=== PATIENT | male | born 1935 | race Caucasian/White ===

== ENCOUNTER 2017-11-21 18:55 | Emergency (ER) | payer MEDICARE, OTHER ==
[2017-11-21 19:09] VITALS: BP 126/86
--- NOTE | 2017-11-21 19:50 | EDM.PDOC ---
ED HPI GENERAL MEDICAL PROBLEM - General Chief Complaint: General Stated Complaint: FELL Time Seen by Provider: 11/21/17 19:30 Source of Information: Reports: Patient, EMS, Family History Limitations: Reports: No Limitations - History of Present Illness INITIAL COMMENTS - FREE TEXT/NARRATIVE: 82-year-old male was with his shopping in town and felt fine. When they got home he was getting out of the car and felt somewhat lightheaded. She helped him into the house and after he got into the house he slowly fell to the floor. She tried to stand him up but he couldn't get up so they called the neighbor. She felt he was clammy and unsteady so the ambulance was called. His vitals have been stable, he has no complaints at this time. In review of the clinic records it appears he has intermittent weakness and near syncope. He's had no fever or chills, no medication changes, no nausea or vomiting or diarrhea. Onset: Sudden (Symptoms came on fairly suddenly when he was trying to get out of the car) Severity: Moderate Associated Symptoms: Reports: Malaise, Weakness. Denies: Fever/Chills, Headaches, Shortness of Breath - Related Data Allergies Allergy/AdvReac Type Severity Reaction Status Date / Time cimetidine [From Tagamet] Allergy Severe Airway Verified 06/05/15 14:49 Tightness cimetidine HCl [From Tagamet] Allergy Severe Airway Verified 06/05/15 14:49 Tightness Home Meds: Home Meds Aspirin [Gabriella Chewable] 81 mg PO DAILY 01/07/14 [History] Calcium Carbonate 600 mg PO BIDM 01/07/14 [History] Folic Acid 400 mcg PO DAILY 01/07/14 [History] [place]-3 Fatty Acids [[place]-3] 1 tab PO DAILY 01/07/14 [History] Omeprazole 40 mg PO DAILY 02/22/14 [History] Leuprolide Acetate [Lupron Depot] 45 mg IM ASDIRECTED 02/25/14 [History] Tamsulosin [Flomax] 0.4 mg PO DAILY 06/05/15 [History] Donepezil HCl [Donepezil HCl] 10 mg PO DAILY 11/21/17 [History] Hydrochlorothiazide [Hydrochlorothiazide] 25 mg PO DAILY 11/21/17 [History] Levothyroxine 25 mcg PO DAILY 11/21/17 [History] Methotrexate Sodium [Methotrexate] 2.5 mg PO ASDIRECTED 11/21/17 [History] Valsartan [Valsartan] 80 mg PO DAILY 11/21/17 [History] predniSONE [Prednisone] 5 mg PO DAILY 11/21/17 [History] Past Medical History Cardiovascular History: Reports: High Cholesterol, Hypertension Respiratory History: Reports: COPD Gastrointestinal History: Reports: Gastritis, GERD Genitourinary History: Reports: Prostate Disorder Musculoskeletal History: Reports: RA Other Neuro History: hypoxic ASCHEMIC ENCEPHALOPATHY. post herpatic neuralgia Psychiatric History: Reports: Dementia Endocrine/Metabolic History: Reports: Hypothyroidism Hematologic History: Reports: Anemia Oncologic (Cancer) History: Reports: Prostate Other Dermatologic History: shingles Social & Family History - Tobacco Use Smoking Status *Q: Never Smoker Years of Tobacco use: 45 Used Tobacco, but Quit: No Month Tobacco Last Used: 1 Second Hand Smoke Exposure: No - Caffeine Use Caffeine Use: Reports: Coffee - Alcohol Use Days Per Week of Alcohol Use: 0 - Recreational Drug Use Recreational Drug Use: No ED ROS GENERAL - Review of Systems Review Of Systems: See Below Constitutional: Reports: Malaise, Weakness, Diaphoresis. Denies: Fever, Chills HEENT: Reports: No Symptoms Respiratory: Denies: Shortness of Breath, Cough Cardiovascular: Denies: Chest Pain GI/Abdominal: Reports: Other (Patient has been diagnosed with colon cancer with resultant surgery in the past, takes a lot of [place] for chronic abdominal discomfort). Denies: Abdominal Pain : Reports: Incontinence (Thought he had stool incontinence when he fainted at home but he is clean.) Skin: Reports: Pallor, Diaphoresis (Resolved) Neurological: Reports: Syncope Psychiatric: Reports: Other (Patient has developed dementia over the past several years) ED EXAM, GENERAL - Physical Exam Exam: See Below Exam Limited By: No Limitations General Appearance: Alert, No Apparent Distress Eye Exam: Bilateral Eye: EOMI Head: Atraumatic Neck: Supple Respiratory/Chest: No Respiratory Distress, Lungs Clear Cardiovascular: Regular Rate, Rhythm. No: Tachycardia GI/Abdominal: Normal Bowel Sounds, Soft, Non-Tender Extremities: Normal Inspection. No: Pedal Edema Neurological: Alert, No Motor/Sensory Deficits Psychiatric: Normal Affect, Normal Mood Course - Vital Signs Last Recorded V/S: Last Vital Signs Temp 99.1 F 11/21/17 19:09 Pulse 74 11/21/17 19:09 Resp 16 11/21/17 19:09 BP 126/86 11/21/17 19:09 Pulse Ox 96 11/21/17 19:09 - Orders/Labs/Meds Labs: Laboratory Tests 11/21/17 11/21/17 Range/Units 19:54 19:54 WBC 16.7 H (4.5-11.0) K/uL RBC 3.76 L (4.30-5.90) M/uL Hgb 11.8 L (12.0-15.0) g/dL Hct 34.3 L (40.0-54.0) % MCV 91 (80-98) fL MCH 31 (27-31) pg MCHC 34 (32-36) % Plt Count 252 (150-400) K/uL Neut % (Auto) 84 H (36-66) % Lymph % (Auto) 8 L (24-44) % [place] % (Auto) 8 H (2-6) % Eos % (Auto) 0 L (2-4) % Baso % (Auto) 0 (0-1) % Sodium 136 L (140-148) mmol/L Potassium 3.1 L (3.6-5.2) mmol/L Chloride 97 L (100-108) mmol/L Carbon Dioxide 29 (21-32) mmol/L Anion Gap 13.1 (5.0-14.0) mmol/L BUN 18 (7-18) mg/dL Creatinine 1.1 (0.8-1.3) mg/dL Est Cr Clr Drug Dosing 46.72 mL/min Estimated GFR (MDRD) > 60 (>60) Glucose 139 H (74-106) mg/dL Calcium 9.2 (8.5-10.1) mg/dL Troponin I 0.030 (0.000-0.056) ng/mL - Re-Assessments/Exams Free Text/Narrative Re-Assessment/Exam: 11/21/17 19:49 CBC, BMP and troponin were obtained. I believe this patient just had a syncopal episode likely vasovagal. 11/21/17 21:06 BMP revealed a potassium of 3.1, otherwise reassuring. Hemoglobin was normal. White count was elevated which is common after a vasovagal episode. Patient continued to be asymptomatic and was able to ambulate without difficulty. I discussed the potassium with his , he has been instructed by his primary provider to eat bananas on a regular basis but he won't because he "doesn't like them". I'm going to start him on 20 mEq of potassium daily for the next 30 days and they can recheck his potassium on his revisit with his primary care provider which is already scheduled Departure - Departure Time of Disposition: 21:13 Disposition: Home, Self-Care 01 Condition: Good Clinical Impression: Syncope, vasovagal, Hypokalemia - Discharge Information Instructions: Vasovagal Syncope, Adult Referrals: Maximiliano Narayanan MD [Primary Care Provider] - Forms: ED Department Discharge Care Plan Goals: Continue your current medications, along with a new dose of potassium chloride as prescribed. Activity as tolerated and return anytime if worsening or concerns. Follow-up with Dr. Narayanan as scheduled.
== END 2017-11-21 21:13 | disposition home or self-care (01) ==
LOC: JP.ED 18:55
DX: R55 Syncope and collapse (principal); E87.6 Hypokalemia; E03.9 Hypothyroidism, unspecified; R53.81 Other malaise; E78.00 Pure hypercholesterolemia, unspecified; I10 Essential (primary) hypertension; K21.9 Gastro-esophageal reflux disease without esophagitis; Z88.8 Allergy status to other drugs, medicaments and biological substances; Z79.82 Long term (current) use of aspirin; Z79.899 Other long term (current) drug therapy
CPT/HCPCS: 36415; 80048; 84484; 85025; 99283; 99284

== ENCOUNTER 2018-12-13 22:27 | Observation (INO) | payer MEDICARE ==
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
[2018-12-13] MEDS ORDERED: LORazepam 0.5 MG Tab PO ONE (23:31)
[2018-12-14] MEDS ORDERED: cefTRIAXone 1 GM in Sodium Chloride 0.9% 50 ML IV ONE (00:07)
[2018-12-14] MEDS ORDERED: Sodium Chloride 0.9% 1,000 ML IV SCH (00:15)
--- NOTE | 2018-12-14 00:33 | CRLCR ---
INDICATION: ELEVATED LACTIC ACID TECHNIQUE: Chest 1 view. COMPARISON: 03/10/14 FINDINGS: Cardiovascular and mediastinum: Heart size and vasculature are normal in caliber and appearance. Mediastinum is within normal limits. Lungs and pleural space: Lungs are clear. No sign of infiltrate or mass. No sign of pleural effusion. No pneumothorax. Bones and soft tissues: No significant findings. IMPRESSION: Unremarkable chest. Dictated by: Olegario Lobato MD @ 12/14/2018 00:31:43 (Electronically Signed)
--- NOTE | 2018-12-14 01:12 | PCM.HP ---
H&P History of Present Illness - General Date of Service: 12/14/18 Admit Problem/Dx: Admission Diagnosis/Problem Admission Diagnosis/Problem Confusion Source of Information: EMS, Provider History Limitations: Reports: Altered Mental Status (dementia) - History of Present Illness Initial Comments - Free Text/Narative: confusion: this is a 83 year old male present to ER via Ambulance. The reports states he was at the [employer] today with his Girlfriend Cara. They played for a few hours until he got tired, then went home. Once he got home he became combative and confused. The Neighbor was called for assistance, they were unable to calm him down, the Ambulance was called. Cara was noted to be very intoxicated at the home and she was brought in as well for exam. She reports he has dementia. While in the ER, labs and chest xray were completed. Chest x-ray was unremarkable per Radiologist. Labs elevated WBC 12.5. chemistries Na 138, K+ 3.8 , anion gap 13.8, cr 1.4, glucose 110, co2 28. Lactic acid 3.1, blood cultures x2, urine culture pending. Medications given in ER, IV fluids, Ativan 0.5mg po, Rocephin 1 gram IV. plan to admit Observation for further monitoring and rehydration. Onset of Symptoms: Reports: Today Duration of Symptoms: Reports: Hour(s): Location: Reports: Generalized Improves with: Reports: Rest Associated Symptoms: Reports: Confusion, Nausea/Vomiting - Related Data Allergies/Adverse Reactions: Allergies Allergy/AdvReac Type Severity Reaction Status Date / Time cimetidine [From Tagamet] Allergy Severe Airway Verified 06/05/15 14:49 Tightness cimetidine HCl [From Tagamet] Allergy Severe Airway Verified 06/05/15 14:49 Tightness Home Medications: Home Meds Aspirin [Gabriella Chewable] 81 mg PO DAILY 01/07/14 [History] Calcium Carbonate 600 mg PO BIDM 01/07/14 [History] Folic Acid 400 mcg PO DAILY 01/07/14 [History] Preston-3 Fatty Acids [Preston-3] 1 tab PO DAILY 01/07/14 [History] Omeprazole 40 mg PO DAILY 02/22/14 [History] Donepezil HCl 10 mg PO DAILY 11/21/17 [History] Levothyroxine 25 mcg PO DAILY 11/21/17 [History] Methotrexate Sodium [Methotrexate] 12.5 mg PO ASDIRECTED 11/21/17 [History] hydroCHLOROthiazide [Hydrochlorothiazide] 25 mg PO DAILY 11/21/17 [History] predniSONE [Prednisone] 20 mg PO DAILY 11/21/17 [History] Candesartan Cilexetil [Atacand] 8 mg PO DAILY 12/13/18 [History] Ibuprofen [Advil] 800 mg PO BEDTIME 12/13/18 [History] Potassium Chloride [Klor-Con] 20 meq PO BID 12/13/18 [History] Past Medical History HEENT History: Reports: Hard of Hearing Cardiovascular History: Reports: High Cholesterol, Hypertension Respiratory History: Reports: COPD Gastrointestinal History: Reports: Gastritis, GERD Genitourinary History: Reports: Prostate Disorder Musculoskeletal History: Reports: RA Other Neuro History: hypoxic ASCHEMIC ENCEPHALOPATHY. post herpatic neuralgia Psychiatric History: Reports: Dementia Endocrine/Metabolic History: Reports: Hypothyroidism Hematologic History: Reports: Anemia Oncologic (Cancer) History: Reports: Prostate Other Dermatologic History: shingles Social & Family History - Tobacco Use Smoking Status *Q: Former Smoker Years of Tobacco use: 60 Used Tobacco, but Quit: Yes Month/Year Tobacco Last Used: 07/21/1996 - Caffeine Use Caffeine Use: Reports: Coffee - Recreational Drug Use Recreational Drug Use: No - Living Situation & Occupation Living situation: Reports: with Significant Other Occupation: Retired (lives in [place], [place]. with [employer], retired.) H&P Review of Systems - Review of Systems: Review Of Systems: ROS reveals no pertinent complaints other than HPI. General: Reports: No Symptoms HEENT: Reports: No Symptoms Pulmonary: Reports: No Symptoms Cardiovascular: Reports: No Symptoms Gastrointestinal: Reports: No Symptoms Genitourinary: Reports: No Symptoms Musculoskeletal: Reports: No Symptoms Skin: Reports: No Symptoms Psychiatric: Reports: Confusion (dementia) Neurological: Reports: No Symptoms, Pre-Existing Deficit (dementia) Hematologic/Lymphatic: Reports: No Symptoms Immunologic: Reports: No Symptoms Exam - Exam Exam: See Below - Vital Signs Vital Signs: Last Vital Signs Temp 36.1 C 12/13/18 22:41 Pulse 113 H 12/13/18 22:41 Resp 16 12/13/18 22:41 BP 141/86 H 12/13/18 22:41 Pulse Ox 98 12/13/18 22:41 Weight: 73.028 kg - Exam General: Alert, Cooperative (elderly man, pleasant, neat and well groomed.) HEENT: PERRLA, EOMI, Other (dentures noted, mouth is dry) Neck: Supple, Trachea Midline Lungs: Clear to Auscultation, Normal Respiratory Effort Cardiovascular: Regular Rate, Regular Rhythm, Normal S1, Normal S2 GI/Abdominal Exam: Normal Bowel Sounds, Soft, Non-Tender (Male) Exam: Deferred Rectal (Males) Exam: Deferred Extremities: Normal Inspection, No Pedal Edema, Normal Capillary Refill, Other ( toenail are very long.) Skin: Warm, Dry, Intact Neurological: Strength Equal Bilateral Neuro Extensive - Mental Status: Alert Psychiatric: Alert, Normal Affect, Normal Mood - Patient Data Lab Results Last 24 hrs: Laboratory Results - last 24 hr 12/13/18 12/13/18 12/13/18 Range/Units 23:10 23:10 23:10 WBC 15.3 H (4.5-11.0) K/uL RBC 4.17 L (4.30-5.90) M/uL Hgb 13.5 (12.0-15.0) g/dL Hct 41.2 (40.0-54.0) % MCV 99 H (80-98) fL MCH 32 H (27-31) pg MCHC 33 (32-36) % Plt Count 275 (150-400) K/uL Add Manual Diff Yes Neutrophils % (Manual) 69 H (36-66) % Lymphocytes % (Manual) 23 L (24-44) % Monocytes % (Manual) 7 H (2-6) % Basophils % (Manual) 1 (0-1) % Sodium 138 L (140-148) mmol/L Potassium 3.8 (3.6-5.2) mmol/L Chloride 100 (100-108) mmol/L Carbon Dioxide 28 (21-32) mmol/L Anion Gap 13.8 (5.0-14.0) mmol/L BUN 24 H (7-18) mg/dL Creatinine 1.4 H (0.8-1.3) mg/dL Est Cr Clr Drug Dosing 34.78 mL/min Estimated GFR (MDRD) 48 L (>60) Glucose 110 H (74-106) mg/dL Lactic Acid (0.4-2.0) mmol/L Calcium 10.0 (8.5-10.1) mg/dL Total Bilirubin 0.7 (0.2-1.0) mg/dL AST 28 (15-37) U/L ALT 44 D (12-78) U/L Alkaline Phosphatase 67 (46-116) U/L C-Reactive Protein (0.0-0.3) mg/dL Total Protein 7.1 (6.4-8.2) g/dL Albumin 3.4 (3.4-5.0) g/dL Globulin 3.7 H (2.3-3.5) g/dL Albumin/Globulin Ratio 0.9 L (1.2-2.2) Urine Color Urine Appearance Urine pH (4.5-8.0) Ur Specific [place] (1.008-1.030) Urine Protein (NEGATIVE) mg/dL Urine Glucose (UA) (NEGATIVE) mg/dL Urine Ketones (NEGATIVE) mg/dL Urine Occult Blood (NEGATIVE) Urine Nitrite (NEGAITVE) Urine Bilirubin (NEGATIVE) Urine Urobilinogen (NORMAL) mg/dL Ur Leukocyte Esterase (NEGATIVE) Urine RBC (0-5) Urine WBC (0-5) Ur Epithelial Cells Amorphous Sediment Urine Bacteria Urine Mucus Ethyl Alcohol < 3 mg/dL 12/13/18 12/13/18 12/14/18 Range/Units 23:42 23:50 00:40 WBC (4.5-11.0) K/uL RBC (4.30-5.90) M/uL Hgb (12.0-15.0) g/dL Hct (40.0-54.0) % MCV (80-98) fL MCH (27-31) pg MCHC (32-36) % Plt Count (150-400) K/uL Add Manual Diff Neutrophils % (Manual) (36-66) % Lymphocytes % (Manual) (24-44) % Monocytes % (Manual) (2-6) % Basophils % (Manual) (0-1) % Sodium (140-148) mmol/L Potassium (3.6-5.2) mmol/L Chloride (100-108) mmol/L Carbon Dioxide (21-32) mmol/L Anion Gap (5.0-14.0) mmol/L BUN (7-18) mg/dL Creatinine (0.8-1.3) mg/dL Est Cr Clr Drug Dosing mL/min Estimated GFR (MDRD) (>60) Glucose (74-106) mg/dL Lactic Acid 3.1 H (0.4-2.0) mmol/L Calcium (8.5-10.1) mg/dL Total Bilirubin (0.2-1.0) mg/dL AST (15-37) U/L ALT (12-78) U/L Alkaline Phosphatase (46-116) U/L C-Reactive Protein 0.97 H (0.0-0.3) mg/dL Total Protein (6.4-8.2) g/dL Albumin (3.4-5.0) g/dL Globulin (2.3-3.5) g/dL Albumin/Globulin Ratio (1.2-2.2) Urine Color Yellow Urine Appearance Clear Urine pH 5.0 (4.5-8.0) Ur Specific [place] 1.025 (1.008-1.030) Urine Protein Negative (NEGATIVE) mg/dL Urine Glucose (UA) Normal (NEGATIVE) mg/dL Urine Ketones Negative (NEGATIVE) mg/dL Urine Occult Blood Trace (NEGATIVE) Urine Nitrite Negative (NEGAITVE) Urine Bilirubin Negative (NEGATIVE) Urine Urobilinogen Normal (NORMAL) mg/dL Ur Leukocyte Esterase Negative (NEGATIVE) Urine RBC 0-5 (0-5) Urine WBC 0-5 (0-5) Ur Epithelial Cells Few Amorphous Sediment Few Urine Bacteria Few Urine Mucus Not seen Ethyl Alcohol mg/dL Result Diagrams: 12/13/18 23:10 12/13/18 23:10 - Problem List (1) Confusion SNOMED Code(s): 321286640 ICD Code: R41.0 - DISORIENTATION, UNSPECIFIED Status: Acute Current Visit : Yes (2) Dehydration SNOMED Code(s): 70351702 ICD Code: E86.0 - DEHYDRATION Status: Acute Current Visit: Yes (3) Elevated lactic acid level SNOMED Code(s): 7488063 ICD Code: R79.89 - OTHER SPECIFIED ABNORMAL FINDINGS OF BLOOD CHEMISTRY Status: Acute Current Visit: Yes (4) COPD, Mild chronic obstructive pulmonary disease SNOMED Code(s): 486560219 ICD Code: J44.9 - CHRONIC OBSTRUCTIVE PULMONARY DISEASE, UNSPECIFIED Status : Chronic Priority: Low Current Visit: No (5) HTN, Benign hypertension SNOMED Code(s): 29333692 ICD Code: I10 - ESSENTIAL (PRIMARY) HYPERTENSION Status: Chronic Priority : Low Current Visit: No (6) Rheumatoid arthritis SNOMED Code(s): 64535100 ICD Code: M06.9 - RHEUMATOID ARTHRITIS, UNSPECIFIED Status: Chronic Priority: Low Current Visit: No Problem List Initiated/Reviewed/Updated: Yes Orders Last 24hrs: Active Orders 24 hr Category Date Time Status Patient Status Manage Transfer [TRANSFER] Routine ADT 12/14/18 00:54 Ordered CULTURE BLOOD [BC] Urgent Lab 12/14/18 00:20 Received CULTURE BLOOD [BC] Urgent Lab 12/14/18 00:20 Received CULTURE URINE [RM] Stat Lab 12/14/18 00:01 Received Sodium Chloride 0.9% [Normal Saline] 1,000 ml Med 12/14/18 00:15 Active IV ASDIRECTED Blood Culture x2 Reflex Set [OM.PC] Urgent Oth 12/14/18 00:06 Ordered Resuscitation Status Routine Resus Stat 12/14/18 00:55 Ordered Medication Orders Sodium Chloride (Normal Saline) 1,000 mls @ 999 mls/hr IV ASDIRECTED ANNALISA Last Admin: 12/14/18 00:57 Dose: 999 mls/hr Assessment/Plan Comment:: Assessment and plan confusion: this is a 83 year old male present to ER via Ambulance. The [place]friend Cara. They played for a few hours until he got tired, then went home. Once he got home he became combative and confused. The Neighbor was called for assistance, they were unable to calm him down, the Ambulance was called. Cara was noted to be very intoxicated at the home and she was brought in as well for exam. She reports he has dementia. While in the ER, vital signs stable TPR 36.1-113-16 B/P 141/86 O2 sat 98% on room air labs and chest xray were completed. Chest x-ray was unremarkable per Radiologist. Labs elevated WBC 12.5. chemistries Na 138, K+ 3.8, anion gap 13.8 , cr 1.4, glucose 110, co2 28. Lactic acid 3.1, blood cultures x2, urine culture pending. Medications given in ER, IV fluids, Ativan 0.5mg po, Rocephin 1 gram IV. Plan -Admit Observation 2 North for further monitoring Confusion, secondary to dehydration and elevated lactic acid. has pre-existing dementia -Rocephin 1 Gram every 24 hours, first dose given in ER -Iv fluids Normal Saline at 125ml/hr -Melatonin for sleep -pain medications ordered. -urine and blood cultures pending -Advise to notify nurses of any fever, chills, worsen pain or other symptoms -And a.m. labs: CBC, BMP, ua Hypertension -home medication ordered -monitor blood pressure COPD -nebulizer ordered prn Rheumatoid arthritis -continue Prednisone and home medications Maintenance issues -Orders home meds: order -Nutrition: Regular diet -Hicks catheter not indicated at this time -DVT:Lovenox 30mg subcut daily -GI Prophalaxis; Protonix 40mg daily CODE STATUS: DNR/DNI Admission status: Admit to Observation -I expect this patient to stay less than 24 hours, not to exceed 96 hours for evaluation and management of this problem. Disposition: home Primary care provider: Dr. Narayanan Hospitalist: Dr. Warner
[2018-12-14] MEDS ORDERED: Acetaminophen 325 MG Tab PO PRN (01:30)
[2018-12-14] MEDS ORDERED: oxyCODONE 5 MG Tab PO PRN (01:30)
[2018-12-14] MEDS ORDERED: Morphine 2 MG/ML Syringe IVPUSH PRN (01:30)
[2018-12-14] MEDS ORDERED: LORazepam 2 MG/ML SDV IV PRN (01:30)
[2018-12-14] MEDS ORDERED: Docusate Sodium 100 MG Cap PO PRN (01:30)
[2018-12-14] MEDS ORDERED: Ondansetron 4 MG Tab.DIS PO PRN (01:30)
[2018-12-14] MEDS ORDERED: Albuterol 0.083% 2.5 MG/3 ML Neb Soln NEB PRN (01:30)
[2018-12-14] MEDS ORDERED: Potassium Chloride 20 MEQ Tab.ER PO ONE (08:30)
[2018-12-14] MEDS ORDERED: FOLIC ACID 400 MCG PO SCH (09:00)
[2018-12-14] MEDS ORDERED: CANDESARTAN CILEXETIL 8 MG PO SCH (09:00)
[2018-12-14] MEDS ORDERED: predniSONE 5 MG Tab PO SCH (09:00)
[2018-12-14] MEDS ORDERED: Pantoprazole 40 MG Tab.CR PO SCH ×2 (09:00→11:30)
[2018-12-14] MEDS ORDERED: Non-Formulary Medication 1 Each (Potassium Chloride [Klor-Con] 20 MEQ) PO SCH (09:00)
[2018-12-14] MEDS ORDERED: Levothyroxine 25 MCG Tab PO SCH (09:00)
[2018-12-14] MEDS ORDERED: Donepezil 10 MG Tab PO SCH (09:00)
[2018-12-14] MEDS ORDERED: Enoxaparin 30 MG/0.3 ML Syringe SUBCUT SCH (09:10)
[2018-12-14] MEDS: Enoxaparin 40 MG/0.4 ML Syringe SUBCUT SCH (09:31)
--- NOTE | 2018-12-14 11:55 | PCM.PN ---
- General Info Date of Service: 12/14/18 Subjective Update: Mr. Knox is an 83-year-old gentleman who was admitted to observation status through the emergency department last night. He has known underlying dementia, became more confused and agitated at home. Since admission he has been confused but not significantly agitated or exhibiting aggressive behavior. Evaluation in the emergency department showed elevated white count but no obvious source of infection. Blood cultures were obtained and he was empirically started on IV antibiotic therapy with Rocephin. Still shows no specific source of infection, white blood cell count improved. Lactic acid mildly elevated on admission at 3.1 , despite hydration had gone to 3.9 this morning. He is unable to provide specific information concerning symptoms or review systems because of his dementia and confusion. - Patient Data Vitals - Most Recent: Last Vital Signs Temp 97 F 12/14/18 11:09 Pulse 75 12/14/18 11:09 Resp 16 12/14/18 11:09 BP 97/52 L 12/14/18 11:09 Pulse Ox 92 L 12/14/18 11:09 Weight - Most Recent: 162 lb 6.386 oz I&O - Last 24 Hours: Intake & Output 12/13/18 12/14/18 12/14/18 22:59 06:59 14:59 Intake Total 384 500 Balance 384 500 Lab Results Last 24 Hours: Laboratory Results - last 24 hr 12/13/18 12/13/18 12/13/18 Range/Units 23:10 23:10 23:10 WBC 15.3 H (4.5-11.0) K/uL RBC 4.17 L (4.30-5.90) M/uL Hgb 13.5 (12.0-15.0) g/dL Hct 41.2 (40.0-54.0) % MCV 99 H (80-98) fL MCH 32 H (27-31) pg MCHC 33 (32-36) % Plt Count 275 (150-400) K/uL Neut % (Auto) (36-66) % Lymph % (Auto) (24-44) % [place] % (Auto) (2-6) % Eos % (Auto) (2-4) % Baso % (Auto) (0-1) % Add Manual Diff Yes Neutrophils % (Manual) 69 H (36-66) % Lymphocytes % (Manual) 23 L (24-44) % Monocytes % (Manual) 7 H (2-6) % Basophils % (Manual) 1 (0-1) % Sodium 138 L (140-148) mmol/L Potassium 3.8 (3.6-5.2) mmol/L Chloride 100 (100-108) mmol/L Carbon Dioxide 28 (21-32) mmol/L Anion Gap 13.8 (5.0-14.0) mmol/L BUN 24 H (7-18) mg/dL Creatinine 1.4 H (0.8-1.3) mg/dL Est Cr Clr Drug Dosing 34.78 mL/min Estimated GFR (MDRD) 48 L (>60) Glucose 110 H (74-106) mg/dL Lactic Acid (0.4-2.0) mmol/L Calcium 10.0 (8.5-10.1) mg/dL Total Bilirubin 0.7 (0.2-1.0) mg/dL AST 28 (15-37) U/L ALT 44 D (12-78) U/L Alkaline Phosphatase 67 (46-116) U/L C-Reactive Protein (0.0-0.3) mg/dL Total Protein 7.1 (6.4-8.2) g/dL Albumin 3.4 (3.4-5.0) g/dL Globulin 3.7 H (2.3-3.5) g/dL Albumin/Globulin Ratio 0.9 L (1.2-2.2) Urine Color Urine Appearance Urine pH (4.5-8.0) Ur Specific Mcc[place]and (1.008-1.030) Urine Protein (NEGATIVE) mg/dL Urine Glucose (UA) (NEGATIVE) mg/dL Urine Ketones (NEGATIVE) mg/dL Urine Occult Blood (NEGATIVE) Urine Nitrite (NEGAITVE) Urine Bilirubin (NEGATIVE) Urine Urobilinogen (NORMAL) mg/dL Ur Leukocyte Esterase (NEGATIVE) Urine RBC (0-5) Urine WBC (0-5) Ur Epithelial Cells Amorphous Sediment Urine Bacteria Urine Mucus Ethyl Alcohol < 3 mg/dL 12/13/18 12/13/18 12/14/18 Range/Units 23:42 23:50 00:40 WBC (4.5-11.0) K/uL RBC (4.30-5.90) M/uL Hgb (12.0-15.0) g/dL Hct (40.0-54.0) % MCV (80-98) fL MCH (27-31) pg MCHC (32-36) % Plt Count (150-400) K/uL Neut % (Auto) (36-66) % Lymph % (Auto) (24-44) % [place] % (Auto) (2-6) % Eos % (Auto) (2-4) % Baso % (Auto) (0-1) % Add Manual Diff Neutrophils % (Manual) (36-66) % Lymphocytes % (Manual) (24-44) % Monocytes % (Manual) (2-6) % Basophils % (Manual) (0-1) % Sodium (140-148) mmol/L Potassium (3.6-5.2) mmol/L Chloride (100-108) mmol/L Carbon Dioxide (21-32) mmol/L Anion Gap (5.0-14.0) mmol/L BUN (7-18) mg/dL Creatinine (0.8-1.3) mg/dL Est Cr Clr Drug Dosing mL/min Estimated GFR (MDRD) (>60) Glucose (74-106) mg/dL Lactic Acid 3.1 H (0.4-2.0) mmol/L Calcium (8.5-10.1) mg/dL Total Bilirubin (0.2-1.0) mg/dL AST (15-37) U/L ALT (12-78) U/L Alkaline Phosphatase (46-116) U/L C-Reactive Protein 0.97 H (0.0-0.3) mg/dL Total Protein (6.4-8.2) g/dL Albumin (3.4-5.0) g/dL Globulin (2.3-3.5) g/dL Albumin/Globulin Ratio (1.2-2.2) Urine Color Yellow Urine Appearance Clear Urine pH 5.0 (4.5-8.0) Ur Specific [place] 1.025 (1.008-1.030) Urine Protein Negative (NEGATIVE) mg/dL Urine Glucose (UA) Normal (NEGATIVE) mg/dL Urine Ketones Negative (NEGATIVE) mg/dL Urine Occult Blood Trace (NEGATIVE) Urine Nitrite Negative (NEGAITVE) Urine Bilirubin Negative (NEGATIVE) Urine Urobilinogen Normal (NORMAL) mg/dL Ur Leukocyte Esterase Negative (NEGATIVE) Urine RBC 0-5 (0-5) Urine WBC 0-5 (0-5) Ur Epithelial Cells Few Amorphous Sediment Few Urine Bacteria Few Urine Mucus Not seen Ethyl Alcohol mg/dL 12/14/18 12/14/18 12/14/18 Range/Units 05:39 05:39 08:17 WBC 10.6 (4.5-11.0) K/uL RBC 3.29 L (4.30-5.90) M/uL Hgb 11.0 L D (12.0-15.0) g/dL Hct 33.0 L (40.0-54.0) % MCV 100 H (80-98) fL MCH 33 H (27-31) pg MCHC 33 (32-36) % Plt Count 204 (150-400) K/uL Neut % (Auto) 51 (36-66) % Lymph % (Auto) 39 (24-44) % [place] % (Auto) 9 H (2-6) % Eos % (Auto) 1 L (2-4) % Baso % (Auto) 1 (0-1) % Add Manual Diff Neutrophils % (Manual) (36-66) % Lymphocytes % (Manual) (24-44) % Monocytes % (Manual) (2-6) % Basophils % (Manual) (0-1) % Sodium 141 (140-148) mmol/L Potassium 3.5 L (3.6-5.2) mmol/L Chloride 105 (100-108) mmol/L Carbon Dioxide 29 (21-32) mmol/L Anion Gap 10.5 (5.0-14.0) mmol/L BUN 20 H (7-18) mg/dL Creatinine 1.2 (0.8-1.3) mg/dL Est Cr Clr Drug Dosing 40.57 mL/min Estimated GFR (MDRD) 58 L (>60) Glucose 85 (74-106) mg/dL Lactic Acid (0.4-2.0) mmol/L Calcium 8.5 (8.5-10.1) mg/dL Total Bilirubin (0.2-1.0) mg/dL AST (15-37) U/L ALT (12-78) U/L Alkaline Phosphatase (46-116) U/L C-Reactive Protein (0.0-0.3) mg/dL Total Protein (6.4-8.2) g/dL Albumin (3.4-5.0) g/dL Globulin (2.3-3.5) g/dL Albumin/Globulin Ratio (1.2-2.2) Urine Color Yellow Urine Appearance Clear Urine pH 5.0 (4.5-8.0) Ur Specific [place] 1.025 (1.008-1.030) Urine Protein Negative (NEGATIVE) mg/dL Urine Glucose (UA) Normal (NEGATIVE) mg/dL Urine Ketones Negative (NEGATIVE) mg/dL Urine Occult Blood Negative (NEGATIVE) Urine Nitrite Negative (NEGAITVE) Urine Bilirubin Negative (NEGATIVE) Urine Urobilinogen Normal (NORMAL) mg/dL Ur Leukocyte Esterase Negative (NEGATIVE) Urine RBC Not seen (0-5) Urine WBC 0-5 (0-5) Ur Epithelial Cells Rare Amorphous Sediment Rare Urine Bacteria Not seen Urine Mucus Not seen Ethyl Alcohol mg/dL 12/14/18 Range/Units 08:17 WBC (4.5-11.0) K/uL RBC (4.30-5.90) M/uL Hgb (12.0-15.0) g/dL Hct (40.0-54.0) % MCV (80-98) fL MCH (27-31) pg MCHC (32-36) % Plt Count (150-400) K/uL Neut % (Auto) (36-66) % Lymph % (Auto) (24-44) % [place] % (Auto) (2-6) % Eos % (Auto) (2-4) % Baso % (Auto) (0-1) % Add Manual Diff Neutrophils % (Manual) (36-66) % Lymphocytes % (Manual) (24-44) % Monocytes % (Manual) (2-6) % Basophils % (Manual) (0-1) % Sodium (140-148) mmol/L Potassium (3.6-5.2) mmol/L Chloride (100-108) mmol/L Carbon Dioxide (21-32) mmol/L Anion Gap (5.0-14.0) mmol/L BUN (7-18) mg/dL Creatinine (0.8-1.3) mg/dL Est Cr Clr Drug Dosing mL/min Estimated GFR (MDRD) (>60) Glucose (74-106) mg/dL Lactic Acid 3.9 H (0.4-2.0) mmol/L Calcium (8.5-10.1) mg/dL Total Bilirubin (0.2-1.0) mg/dL AST (15-37) U/L ALT (12-78) U/L Alkaline Phosphatase (46-116) U/L C-Reactive Protein (0.0-0.3) mg/dL Total Protein (6.4-8.2) g/dL Albumin (3.4-5.0) g/dL Globulin (2.3-3.5) g/dL Albumin/Globulin Ratio (1.2-2.2) Urine Color Urine Appearance Urine pH (4.5-8.0) Ur Specific M[place] (1.008-1.030) Urine Protein (NEGATIVE) mg/dL Urine Glucose (UA) (NEGATIVE) mg/dL Urine Ketones (NEGATIVE) mg/dL Urine Occult Blood (NEGATIVE) Urine Nitrite (NEGAITVE) Urine Bilirubin (NEGATIVE) Urine Urobilinogen (NORMAL) mg/dL Ur Leukocyte Esterase (NEGATIVE) Urine RBC (0-5) Urine WBC (0-5) Ur Epithelial Cells Amorphous Sediment Urine Bacteria Urine Mucus Ethyl Alcohol mg/dL Med Orders - Current: Current Medications Acetaminophen (Tylenol) 650 mg PO Q4H PRN PRN Reason: Pain (Mild 1-3)/fever Albuterol (Proventil Neb Soln) 2.5 mg NEB Q4H PRN PRN Reason: Shortness Of Breath/wheezing Aspirin (Aspirin) 81 mg PO DAILY [facility] Docusate Sodium (Colace) 100 mg PO BID PRN PRN Reason: Constipation Donepezil HCl (Aricept) 10 mg PO DAILY [facility] Enoxaparin Sodium (Lovenox) 40 mg SUBCUT DAILY [facility] Last Admin: 12/14/18 09:31 Dose: 40 mg Folic Acid (Folic Acid) 0.5 mg PO DAILY [facility] Hydrochlorothiazide (Hydrochlorothiazide) 25 mg PO DAILY [facility] Sodium Chloride (Normal Saline) 1,000 mls @ 125 mls/hr IV ASDIRECTED [facility] Ceftriaxone Sodium 1 gm/ (Sodium Chloride) 50 mls @ 100 mls/hr IV Q24H [facility] Levothyroxine Sodium (Levothyroxine) 25 mcg PO ACBREAKFAST [facility] Lorazepam (Ativan) 1 mg IV Q6H PRN PRN Reason: Nausea/Vomiting Melatonin (Melatonin) 6 mg PO BEDTIME [facility] Morphine Sulfate (Morphine) 2 mg IVPUSH Q2H PRN PRN Reason: Pain (severe 7-10) Non-Formulary Medication (Candesartan Cilexetil [Atacand]) 8 mg PO DAILY [facility] Ondansetron HCl (Zofran Odt) 4 mg PO Q6H PRN PRN Reason: Nausea able to take PO Oxycodone HCl (Oxycodone) 5 mg PO Q4H PRN PRN Reason: Pain (moderate 4-6) Pantoprazole Sodium (Protonix) 40 mg PO ACBREAKFAST [facility] Potassium Chloride (Klor-Con M20) 20 meq PO BIDMEALS [facility] Prednisone (Prednisone) 20 mg PO DAILY [facility] Discontinued Medications Sodium Chloride (Normal Saline) 1,000 mls @ 999 mls/hr IV ASDIRECTED [facility] Last Admin: 12/14/18 00:57 Dose: 999 mls/hr Ceftriaxone Sodium 1 gm/ (Sodium Chloride) 50 mls @ 100 mls/hr IV ONETIME ONE Stop: 12/14/18 00:36 Last Admin: 12/14/18 00:57 Dose: 100 mls/hr Ceftriaxone Sodium 1 gm/ (Sodium Chloride) 50 mls @ 100 mls/hr IV Q24H [facility] Levothyroxine Sodium (Levothyroxine) 25 mcg PO DAILY [facility] Lorazepam (Ativan) 0.5 mg PO ONETIME ONE Stop: 12/13/18 23:32 Last Admin: 12/13/18 23:36 Dose: 0.5 mg Non-Formulary Medication (Folic Acid [Folic Acid]) 400 mcg PO DAILY [facility] Non-Formulary Medication (Potassium Chloride [Klor-Con]) 20 meq PO BID [facility] Pantoprazole Sodium (Protonix) 40 mg PO DAILY [facility] Potassium Chloride (Klor-Con M20) 40 meq PO ONETIME ONE Stop: 12/14/18 08:31 Last Admin: 12/14/18 09:30 Dose: 40 meq Prednisone (Prednisone) 20 mg PO DAILY [facility] - Exam Quality Assessment: DVT Prophylaxis General: Alert, Cooperative, No Acute Distress. No: Oriented Lungs: Clear to Auscultation, Normal Respiratory Effort Cardiovascular: Regular Rate, Regular Rhythm, No Murmurs GI/Abdominal Exam: Soft, Non-Tender, No Organomegaly, No Distention Extremities: Non-Tender, No Pedal Edema - Problem List Review Problem List Initiated/Reviewed/Updated: Yes - My Orders Last 24 Hours: My Active Orders 12/14/18 19:00 LACTIC ACID [CHEM] Stat 12/15/18 05:00 BASIC METABOLIC PANEL,BMP [CHEM] Timed CBC WITH AUTO DIFF [HEME] Timed LACTIC ACID [CHEM] Timed - Plan Plan:: Assessment and plan Confusion, secondary to dehydration and elevated lactic acid. has pre-existing dementia. Stable since admission with no further agitation or aggressive behavior -Rocephin 1 Gram every 24 hours -Iv fluids Normal Saline at 125ml/hr -Melatonin for sleep -pain medications ordered. -urine and blood cultures pending Hypertension -home medication ordered -monitor blood pressure COPD -nebulizer ordered prn Rheumatoid arthritis -continue Prednisone and home medications Maintenance issues -Orders home meds: order -Nutrition: Regular diet -Hicks catheter not indicated at this time -DVT:Lovenox 30mg subcut daily -GI Prophalaxis; Protonix 40mg daily CODE STATUS: DNR/DNI Admission status: Admit to Observation -I expect this patient to stay less than 24 hours, not to exceed 96 hours for evaluation and management of this problem. Disposition: home Primary care provider: Dr. Narayanan Hospitalist: Dr. Warner
[2018-12-14] MEDS: Sodium Chloride 0.9% 1,000 ML IV SCH ×2 (12:38→20:38)
[2018-12-14] MEDS: LEVOTHYROXINE 25 MCG PO SCH (13:45)
[2018-12-14] MEDS: PREDNISONE 20 MG PO SCH (13:45)
[2018-12-14] MEDS: Folic Acid 1 MG **PTOM PO SCH (13:46)
[2018-12-14] MEDS: OMEPRAZOLE 40MG **PTOM PO SCH (13:47)
[2018-12-14] MEDS: Hydrochlorothiazide 25 MG **PTOM PO SCH (13:48)
[2018-12-14] MEDS: CANDESARTAN 8 MG PO SCH (13:48)
[2018-12-14] MEDS: Aspirin 81 MG Tab.Chew PO SCH (13:55)
[2018-12-14] MEDS: Potassium Chloride 20 MEQ **PTOM PO SCH ×2 (14:12→17:06)
[2018-12-14] MEDS ORDERED: Donepezil 10 MG **PTOM PO SCH (21:00)
[2018-12-14] MEDS ORDERED: Melatonin 3 MG Tab PO SCH (21:00)
[2018-12-14] MEDS ORDERED: cefTRIAXone 1 GM in Sodium Chloride 0.9% 50 ML IV SCH (22:00)
[2018-12-15] MEDS ORDERED: cefTRIAXone 1 GM in Sodium Chloride 0.9% 50 ML IV SCH (01:15)
[2018-12-15] MEDS: Sodium Chloride 0.9% 1,000 ML IV SCH (04:42)
[2018-12-15] MEDS: Potassium Chloride 20 MEQ **PTOM PO SCH (07:42)
[2018-12-15] MEDS: OMEPRAZOLE 40MG **PTOM PO SCH (07:43)
[2018-12-15] MEDS: LEVOTHYROXINE 25 MCG PO SCH (07:44)
[2018-12-15] MEDS: PREDNISONE 20 MG PO SCH (08:11)
[2018-12-15] MEDS: Enoxaparin 40 MG/0.4 ML Syringe SUBCUT SCH (08:11)
[2018-12-15] MEDS: Aspirin 81 MG Tab.Chew PO SCH (08:11)
[2018-12-15] MEDS: Folic Acid 1 MG **PTOM PO SCH (08:12)
[2018-12-15] MEDS: Hydrochlorothiazide 25 MG **PTOM PO SCH (08:13)
[2018-12-15] MEDS: CANDESARTAN 8 MG PO SCH (08:15)
[2018-12-15 10:50] VITALS: BP 109/66
--- NOTE | 2018-12-15 10:53 | PCM.DCSUM1 ---
Discharge Summary - Hospital Course Brief History: Mr. Knox is an 83-year-old gentleman who was admitted through the emergency department to observation status after experiencing an episode at home of significant agitation, secondary to underlying dementia. - Discharge Data Discharge Date: 12/15/18 Discharge Disposition: Home, Self-Care 01 Condition: Fair - Discharge Diagnosis/Problem(s) (1) Agitation SNOMED Code(s): 112936706 ICD Code: R45.1 - RESTLESSNESS AND AGITATION Status: Acute Current Visit : Yes (2) Dementia SNOMED Code(s): 99809664 ICD Code: F03.90 - UNSPECIFIED DEMENTIA WITHOUT BEHAVIORAL DISTURBANCE Status: Acute Current Visit: Yes (3) Elevated lactic acid level SNOMED Code(s): 3390376 ICD Code: R79.89 - OTHER SPECIFIED ABNORMAL FINDINGS OF BLOOD CHEMISTRY Status: Acute Current Visit: Yes (4) Dehydration SNOMED Code(s): 65703926 ICD Code: E86.0 - DEHYDRATION Status: Acute Current Visit: Yes - Patient Summary/Data Hospital Course: Mr. Knox is an 83-year-old gentleman who was admitted to observation status through the emergency department. He has known underlying dementia, became more confused and agitated at home. Since admission he has been confused but not significantly agitated or exhibiting aggressive behavior. Evaluation in the emergency department showed elevated white count but no obvious source of infection. Blood cultures were obtained and he was empirically started on IV antibiotic therapy with Rocephin. Still shows no specific source of infection, white blood cell count improved. Lactic acid mildly elevated on admission at 3.1 , despite hydration had gone to 3.9 this morning. Follow-up lactic acid levels returned to normal range and the original elevation was felt to be likely secondary to dehydration. He showed no further episodes of agitation throughout hospital stay and required no additional medication. On follow-up there was no significant evidence of infection and antibiotic therapy will be discontinued at the time of discharge. He will be discharged home with his , she is exploring alternative living situations including assisted living. Activity will be as tolerated and he will resume his usual diet. - Patient Instructions Diet: Usual Diet as Tolerated Activity: As Tolerated Other/Special Instructions: Please schedule follow-up appointment with primary care provider within one week. - Discharge Plan *PRESCRIPTION DRUG MONITORING PROGRAM REVIEWED*: Not Applicable *COPY OF PRESCRIPTION DRUG MONITORING REPORT IN PATIENT MELISSA: Not Applicable Home Medications: Home Meds Aspirin [Gabriella Chewable Aspirin] 81 mg PO DAILY 01/07/14 [History] Calcium Carbonate 600 mg PO BIDM 01/07/14 [History] Folic Acid 400 mcg PO DAILY 01/07/14 [History] [place]lington-3 Fatty Acids [[place]-3] 1 tab PO DAILY 01/07/14 [History] Omeprazole 40 mg PO DAILY 02/22/14 [History] Donepezil HCl 10 mg PO DAILY 11/21/17 [History] Levothyroxine 25 mcg PO DAILY 11/21/17 [History] Methotrexate Sodium [Methotrexate] 12.5 mg PO ASDIRECTED 11/21/17 [History] hydroCHLOROthiazide [Hydrochlorothiazide] 25 mg PO DAILY 11/21/17 [History] predniSONE [Prednisone] 20 mg PO DAILY 11/21/17 [History] Candesartan Cilexetil [Atacand] 8 mg PO DAILY 12/13/18 [History] Ibuprofen [Advil] 800 mg PO BEDTIME 12/13/18 [History] Potassium Chloride [Klor-Con] 20 meq PO BID 12/13/18 [History] - Discharge Summary/Plan Comment DC Time >30 min.: No - Patient Data Vitals - Most Recent: Last Vital Signs Temp 95.7 F 12/15/18 07:00 Pulse 67 12/15/18 07:00 Resp 18 12/15/18 07:00 BP 121/50 L 12/15/18 07:00 Pulse Ox 97 12/15/18 07:00 Weight - Most Recent: 162 lb 6.386 oz I&O - Last 24 hours: Intake & Output 12/14/18 12/15/18 12/15/18 22:59 06:59 14:59 Intake Total 380 1428 615 Balance 380 1428 615 Lab Results - Last 24 hrs: Laboratory Results - last 24 hr 12/14/18 12/15/18 12/15/18 Range/Units 19:21 04:15 04:15 WBC 8.1 (4.5-11.0) K/uL RBC 3.24 L (4.30-5.90) M/uL Hgb 10.7 L (12.0-15.0) g/dL Hct 33.1 L (40.0-54.0) % MCV 102 H (80-98) fL MCH 33 H (27-31) pg MCHC 32 (32-36) % Plt Count 181 (150-400) K/uL Neut % (Auto) 73 H (36-66) % Lymph % (Auto) 22 L (24-44) % [place] % (Auto) 4 (2-6) % Eos % (Auto) 0 L (2-4) % Baso % (Auto) 0 (0-1) % Sodium 140 (140-148) mmol/L Potassium 4.7 (3.6-5.2) mmol/L Chloride 108 (100-108) mmol/L Carbon Dioxide 27 (21-32) mmol/L Anion Gap 5.4 (5.0-14.0) mmol/L BUN 14 (7-18) mg/dL Creatinine 1.2 (0.8-1.3) mg/dL Est Cr Clr Drug Dosing 40.51 mL/min Estimated GFR (MDRD) 58 L (>60) Glucose 107 H (74-106) mg/dL Lactic Acid 2.0 (0.4-2.0) mmol/L Calcium 8.4 L (8.5-10.1) mg/dL 12/15/18 Range/Units 04:15 WBC (4.5-11.0) K/uL RBC (4.30-5.90) M/uL Hgb (12.0-15.0) g/dL Hct (40.0-54.0) % MCV (80-98) fL MCH (27-31) pg MCHC (32-36) % Plt Count (150-400) K/uL Neut % (Auto) (36-66) % Lymph % (Auto) (24-44) % [place] % (Auto) (2-6) % Eos % (Auto) (2-4) % Baso % (Auto) (0-1) % Sodium (140-148) mmol/L Potassium (3.6-5.2) mmol/L Chloride (100-108) mmol/L Carbon Dioxide (21-32) mmol/L Anion Gap (5.0-14.0) mmol/L BUN (7-18) mg/dL Creatinine (0.8-1.3) mg/dL Est Cr Clr Drug Dosing mL/min Estimated GFR (MDRD) (>60) Glucose (74-106) mg/dL Lactic Acid 1.5 (0.4-2.0) mmol/L Calcium (8.5-10.1) mg/dL SIRIA Results - Last 24 hrs: Microbiology 12/14/18 00:01 Urine Culture - Preliminary Urine, Bladder NO GROWTH AFTER 1 DAY 12/14/18 00:20 Aerobic Blood Culture - Preliminary Blood - Arm, Left NO GROWTH AFTER 1 DAY Anaerobic Blood Culture - Preliminary NO GROWTH AFTER 1 DAY 12/14/18 00:20 Aerobic Blood Culture - Preliminary Blood - Arm, Right NO GROWTH AFTER 1 DAY Anaerobic Blood Culture - Preliminary NO GROWTH AFTER 1 DAY Med Orders - Current: Current Medications Acetaminophen (Tylenol) 650 mg PO Q4H PRN PRN Reason: Pain (Mild 1-3)/fever Albuterol (Proventil Neb Soln) 2.5 mg NEB Q4H PRN PRN Reason: Shortness Of Breath/wheezing Aspirin (Aspirin) 81 mg PO DAILY [facility] Last Admin: 12/15/18 08:11 Dose: 81 mg Docusate Sodium (Colace) 100 mg PO BID PRN PRN Reason: Constipation Donepezil HCl (Aricept) 10 mg PO BEDTIME [facility] Last Admin: 12/14/18 21:19 Dose: 10 mg Enoxaparin Sodium (Lovenox) 40 mg SUBCUT DAILY [facility] Last Admin: 12/15/18 08:11 Dose: 40 mg Folic Acid (Folic Acid) 0.5 mg PO DAILY [facility] Last Admin: 12/15/18 08:12 Dose: 0.5 mg Hydrochlorothiazide (Hydrochlorothiazide) 25 mg PO DAILY [facility] Last Admin: 12/15/18 08:13 Dose: 25 mg Sodium Chloride (Normal Saline) 1,000 mls @ 125 mls/hr IV ASDIRECTED [facility] Last Admin: 12/15/18 04:42 Dose: 125 mls/hr Ceftriaxone Sodium 1 gm/ (Sodium Chloride) 50 mls @ 100 mls/hr IV Q24H [facility] Last Admin: 12/14/18 23:04 Dose: 100 mls/hr Levothyroxine Sodium (Levothyroxine) 25 mcg PO ACBREAKFAST [facility] Last Admin: 12/15/18 07:44 Dose: 25 mcg Lorazepam (Ativan) 1 mg IV Q6H PRN PRN Reason: Nausea/Vomiting Melatonin (Melatonin) 6 mg PO BEDTIME [facility] Last Admin: 12/14/18 21:18 Dose: 6 mg Morphine Sulfate (Morphine) 2 mg IVPUSH Q2H PRN PRN Reason: Pain (severe 7-10) Ondansetron HCl (Zofran Odt) 4 mg PO Q6H PRN PRN Reason: Nausea able to take PO Oxycodone HCl (Oxycodone) 5 mg PO Q4H PRN PRN Reason: Pain (moderate 4-6) Candesartan 8mg (Ptom) 0 each PO DAILY [facility] Last Admin: 12/15/18 08:15 Dose: 1 each Omeprazole 40mg (Ptom) 0 each PO DAILY@0730 [facility] Last Admin: 12/15/18 07:43 Dose: 1 each Potassium Chloride (Klor-Con M20) 20 meq PO BIDMEALS [facility] Last Admin: 12/15/18 07:42 Dose: 20 meq Prednisone (Prednisone) 20 mg PO DAILY [facility] Last Admin: 12/15/18 08:11 Dose: 20 mg Discontinued Medications Sodium Chloride (Normal Saline) 1,000 mls @ 999 mls/hr IV ASDIRECTED [facility] Last Admin: 12/14/18 00:57 Dose: 999 mls/hr Ceftriaxone Sodium 1 gm/ (Sodium Chloride) 50 mls @ 100 mls/hr IV ONETIME ONE Stop: 12/14/18 00:36 Last Admin: 12/14/18 00:57 Dose: 100 mls/hr Ceftriaxone Sodium 1 gm/ (Sodium Chloride) 50 mls @ 100 mls/hr IV Q24H [facility] Levothyroxine Sodium (Levothyroxine) 25 mcg PO DAILY [facility] Lorazepam (Ativan) 0.5 mg PO ONETIME ONE Stop: 12/13/18 23:32 Last Admin: 12/13/18 23:36 Dose: 0.5 mg Non-Formulary Medication (Folic Acid [Folic Acid]) 400 mcg PO DAILY [facility] Non-Formulary Medication (Potassium Chloride [Klor-Con]) 20 meq PO BID [facility] Pantoprazole Sodium (Protonix) 40 mg PO DAILY [facility] Potassium Chloride (Klor-Con M20) 40 meq PO ONETIME ONE Stop: 12/14/18 08:31 Last Admin: 12/14/18 09:30 Dose: 40 meq Prednisone (Prednisone) 20 mg PO DAILY [facility] - Exam General: Reports: Alert, Oriented, Cooperative, No Acute Distress Lungs: Reports: Clear to Auscultation, Normal Respiratory Effort Cardiovascular: Reports: Regular Rate, Regular Rhythm, No Murmurs GI/Abdominal Exam: Soft, Non-Tender, No Organomegaly, No Distention
== END 2018-12-15 11:28 | disposition home or self-care (01) ==
LOC: JP.ED 22:27 → JP.MS 12-14 00:54
PROVIDERS: ADMIT Hospitalist; ATTEND Hospitalist
DX: F03.90 Unspecified dementia, unspecified severity, without behavioral disturbance, psychotic disturbance, mood disturbance, and anxiety (principal); R45.1 Restlessness and agitation; R79.89 Other specified abnormal findings of blood chemistry; E86.0 Dehydration; J44.9 Chronic obstructive pulmonary disease, unspecified; I10 Essential (primary) hypertension; E78.00 Pure hypercholesterolemia, unspecified; E03.9 Hypothyroidism, unspecified; Z87.891 Personal history of nicotine dependence; M06.9 Rheumatoid arthritis, unspecified; Z79.82 Long term (current) use of aspirin; Z79.899 Other long term (current) drug therapy; Z79.890 Hormone replacement therapy
CPT/HCPCS: 36415; 71045; 80048; 80053; 81001; 83605; 85025; 86140; 87040; 87086; 96361; 96365; 96372; 96376; 99285; A9270; G0378; G0480; J0696; J1650; J7030; J7050

== ENCOUNTER 2019-01-02 11:10 | Inpatient (IN) | payer MEDICARE ==
[2019-01-02] MEDS: Sodium Chloride 0.9% 1,000 ML IV SCH ×2 (11:15→12:48)
--- NOTE | 2019-01-02 11:47 | CRLCR ---
INDICATION: hypotension TECHNIQUE: Chest 1 view. COMPARISON: 12/14/18 FINDINGS: Cardiovascular and mediastinum: Heart size and vasculature are normal in caliber and appearance. Mediastinum is within normal limits. Lungs and pleural space: Lungs are clear. No sign of infiltrate or mass. No sign of pleural effusion. No pneumothorax. Bones and soft tissues: No significant findings. IMPRESSION: Unremarkable chest. Dictated by: Olegario Lobato MD @ 01/02/2019 11:46:12 (Electronically Signed)
--- NOTE | 2019-01-02 12:23 | CRLCT ---
Indication: Confusion Technique: CT head without intravenous contrast Comparison: None Findings: No intracranial hemorrhage. No mass lesions. No evidence of shift of the midline structures. Age-appropriate brain atrophy. Periventricular low density secondary to small vessel disease. Impression: Age-appropriate brain atrophy Evidence of small vessel disease No intracranial hemorrhage No mass lesions or shift of the midline structures Please note that all CT scans at this facility use dose modulation, iterative reconstruction, and/or weight-based dosing when appropriate to reduce radiation dose to as low as reasonably achievable. Dictated by Makenna Pickard MD @ Jan 02 2019 12:18PM Signed by Dr. Makenna Pickard @ Jan 02 2019 12:21PM
[2019-01-02] MEDS ORDERED: Sodium Chloride 0.9% 1,000 ML IV SCH (12:30)
[2019-01-02] MEDS ORDERED: Potassium Chloride 20 MEQ in Premix Bag 1 BAG IV ONE (12:49)
[2019-01-02] MEDS ORDERED: Potassium Chloride 20 MEQ Tab.ER PO ONE ×2 (12:50→17:59)
[2019-01-02] MEDS ORDERED: Potassium Chloride 20 MEQ, Lidocaine 1% 2 ML in Sodium Chloride 0.9% 100 ML IV ONE (13:45)
--- NOTE | 2019-01-02 14:25 | EDM.PDOC ---
ED HPI GENERAL MEDICAL PROBLEM - General Chief Complaint: General Stated Complaint: MEDICAL [facility] Time Seen by Provider: 01/02/19 11:30 Source of Information: Reports: Patient, EMS, Family, Other (pt was found to be very confused. ) - History of Present Illness INITIAL COMMENTS - FREE TEXT/NARRATIVE: pt was at [facility] and while in the store he became very confused. He has had a recent urosepsiis which seemed very similar. Onset: Today, Sudden Duration: Hour(s): Location: Reports: Generalized Treatments NURSING HOME SOCIAL WORKER: Reports: IV/IO Neck Pain Score (Numeric/FACES): 2 - Related Data Allergies Allergy/AdvReac Type Severity Reaction Status Date / Time cimetidine [From Tagamet] Allergy Severe Airway Verified 01/02/19 11:27 Tightness cimetidine HCl [From Tagamet] Allergy Severe Airway Verified 01/02/19 11:27 Tightness naproxen [From Aleve] Allergy Nausea Verified 01/02/19 11:27 Home Meds: Home Meds Aspirin [Gabriella Chewable Aspirin] 81 mg PO DAILY 01/07/14 [History] Folic Acid 400 mcg PO DAILY 01/07/14 [History] Omeprazole 40 mg PO DAILY 02/22/14 [History] Donepezil HCl 10 mg PO DAILY 11/21/17 [History] Levothyroxine 25 mcg PO DAILY 11/21/17 [History] Methotrexate Sodium [Methotrexate] 12.5 mg PO WEEKLY 11/21/17 [History] hydroCHLOROthiazide [Hydrochlorothiazide] 25 mg PO DAILY 11/21/17 [History] predniSONE [Prednisone] 20 mg PO DAILY 11/21/17 [History] Candesartan Cilexetil [Atacand] 8 mg PO DAILY 12/13/18 [History] Ibuprofen [Advil] 800 mg PO BEDTIME 12/13/18 [History] Potassium Chloride [Klor-Con] 20 meq PO BID 12/13/18 [History] Past Medical History HEENT History: Reports: Hard of Hearing Cardiovascular History: Reports: High Cholesterol, Hypertension Respiratory History: Reports: COPD Gastrointestinal History: Reports: Gastritis, GERD Genitourinary History: Reports: Prostate Disorder Musculoskeletal History: Reports: RA Other Neuro History: hypoxic ASCHEMIC ENCEPHALOPATHY. post herpatic neuralgia Psychiatric History: Reports: Dementia Endocrine/Metabolic History: Reports: Hypothyroidism Hematologic History: Reports: Anemia Oncologic (Cancer) History: Reports: Prostate Other Dermatologic History: shingles - Infectious Disease History Infectious Disease History: Reports: Chicken Pox Social & Family History - Family History Family Medical History: Noncontributory - Tobacco Use Smoking Status *Q: Never Smoker - Caffeine Use Caffeine Use: Reports: None - Recreational Drug Use Recreational Drug Use: No - Living Situation & Occupation Living situation: Reports: with Significant Other Occupation: Retired (lives in [facility] with AIDEN Nicole, retired.) ED ROS GENERAL - Review of Systems Review Of Systems: See Below Constitutional: Reports: Other (pt is confused. ) HEENT: Reports: No Symptoms Respiratory: Reports: No Symptoms Cardiovascular: Reports: No Symptoms Endocrine: Reports: No Symptoms GI/Abdominal: Reports: No Symptoms : Reports: No Symptoms Musculoskeletal: Reports: No Symptoms Skin: Reports: No Symptoms Neurological: Reports: Confusion ED EXAM, GENERAL - Physical Exam Exam: See Below Free Text/Narrative:: pt was at [facility] and he suddenly became very confused. He did do this one other time when he had a Urosepsis. He does not drink fluids well. Exam Limited By: No Limitations General Appearance: Alert, Mild Distress, Other (ppils equal and reactive. ) Ears: Normal TMs Nose: Normal Inspection Throat/Mouth: Normal Inspection Head: Atraumatic Neck: Normal Inspection Respiratory/Chest: No Respiratory Distress Cardiovascular: Regular Rate, Rhythm GI/Abdominal: Soft, Non-Tender (Male) Exam: Deferred Rectal (Males) Exam: Normal Exam Back Exam: Normal Inspection Extremities: Normal Inspection Neurological: Alert, Inattentive, Confused, Disoriented Course - Vital Signs Last Recorded V/S: Last Vital Signs Temp 34.5 C L 01/02/19 13:28 Pulse 66 01/02/19 13:28 Resp 14 01/02/19 13:29 BP 123/45 L 01/02/19 13:29 Pulse Ox 97 01/02/19 13:29 - Orders/Labs/Meds Orders: Active Orders 24 hr Category Date Time Status Hicks Catheter Insertion [Insert Urinary Catheter] [OM. Care 01/02/19 13:15 Ordered PC] Q24H Urinary Catheter Assessment [RC] ASDIRECTED Care 01/02/19 13:05 Active CULTURE URINE [RM] Stat Lab 01/02/19 13:28 Ordered Potassium Chloride 20 meq Med 01/02/19 13:45 Active Lidocaine 1% [Xylocaine 1%] 2 ml Sodium Chloride 0.9% [Normal Saline] 100 ml IV ONETIME Sodium Chloride 0.9% [Normal Saline] 1,000 ml Med 01/02/19 11:30 Active IV ASDIRECTED Sodium Chloride 0.9% [Normal Saline] 1,000 ml Med 01/02/19 12:30 Active IV ASDIRECTED Medication Orders Sodium Chloride (Normal Saline) 1,000 mls @ 999 mls/hr IV ASDIRECTED ANNALISA Last Admin: 01/02/19 12:48 Dose: 999 mls/hr Infusion: 01/02/19 12:16 Dose: 999 mls/hr Admin: 01/02/19 11:15 Dose: 999 mls/hr Sodium Chloride (Normal Saline) 1,000 mls @ 999 mls/hr IV ASDIRECTED ANNALISA Potassium Chloride 20 meq/Lidocaine HCl 2 ml/ Sodium Chloride 112 mls @ 56 mls/ hr IV ONETIME ONE Stop: 01/02/19 15:44 Last Admin: 01/02/19 13:44 Dose: 56 mls/hr Labs: Laboratory Tests 01/02/19 01/02/19 01/02/19 Range/Units 11:22 11:22 11:22 WBC 14.8 H (4.5-11.0) K/uL RBC 3.72 L (4.30-5.90) M/uL Hgb 12.3 (12.0-15.0) g/dL Hct 36.4 L (40.0-54.0) % MCV 98 (80-98) fL MCH 33 H (27-31) pg MCHC 34 (32-36) % Plt Count 212 (150-400) K/uL Add Manual Diff Yes Neutrophils % (Manual) 55 (36-66) % Band Neutrophils % 2 L (5-11) % Lymphocytes % (Manual) 37 (24-44) % Monocytes % (Manual) 5 (2-6) % Eosinophils % (Manual) 1 L (2-4) % Sodium 139 L (140-148) mmol/L Potassium 3.0 L (3.6-5.2) mmol/L Chloride 102 (100-108) mmol/L Carbon Dioxide 29 (21-32) mmol/L Anion Gap 11.0 (5.0-14.0) mmol/L BUN 21 H (7-18) mg/dL Creatinine 1.5 H (0.8-1.3) mg/dL Est Cr Clr Drug Dosing 33.67 mL/min Estimated GFR (MDRD) 45 L (>60) Glucose 125 H (74-106) mg/dL Lactic Acid 4.9 H (0.4-2.0) mmol/L Calcium 8.7 (8.5-10.1) mg/dL Total Bilirubin 0.5 (0.2-1.0) mg/dL AST 26 (15-37) U/L ALT 35 (12-78) U/L Alkaline Phosphatase 58 (46-116) U/L Total Protein 6.0 L (6.4-8.2) g/dL Albumin 2.7 L (3.4-5.0) g/dL Globulin 3.3 (2.3-3.5) g/dL Albumin/Globulin Ratio 0.8 L (1.2-2.2) TSH, Ultra Sensitive (0.358-3.740) uIU/mL Urine Color Urine Appearance Urine pH (4.5-8.0) Ur Specific [place] (1.008-1.030) Urine Protein (NEGATIVE) mg/dL Urine Glucose (UA) (NEGATIVE) mg/dL Urine Ketones (NEGATIVE) mg/dL Urine Occult Blood (NEGATIVE) Urine Nitrite (NEGAITVE) Urine Bilirubin (NEGATIVE) Urine Urobilinogen (NORMAL) mg/dL Ur Leukocyte Esterase (NEGATIVE) Urine RBC (0-5) Urine WBC (0-5) Ur Epithelial Cells Amorphous Sediment Urine Bacteria Urine Mucus 01/02/19 01/02/19 Range/Units 11:22 13:04 WBC (4.5-11.0) K/uL RBC (4.30-5.90) M/uL Hgb (12.0-15.0) g/dL Hct (40.0-54.0) % MCV (80-98) fL MCH (27-31) pg MCHC (32-36) % Plt Count (150-400) K/uL Add Manual Diff Neutrophils % (Manual) (36-66) % Band Neutrophils % (5-11) % Lymphocytes % (Manual) (24-44) % Monocytes % (Manual) (2-6) % Eosinophils % (Manual) (2-4) % Sodium (140-148) mmol/L Potassium (3.6-5.2) mmol/L Chloride (100-108) mmol/L Carbon Dioxide (21-32) mmol/L Anion Gap (5.0-14.0) mmol/L BUN (7-18) mg/dL Creatinine (0.8-1.3) mg/dL Est Cr Clr Drug Dosing mL/min Estimated GFR (MDRD) (>60) Glucose (74-106) mg/dL Lactic Acid (0.4-2.0) mmol/L Calcium (8.5-10.1) mg/dL Total Bilirubin (0.2-1.0) mg/dL AST (15-37) U/L ALT (12-78) U/L Alkaline Phosphatase (46-116) U/L Total Protein (6.4-8.2) g/dL Albumin (3.4-5.0) g/dL Globulin (2.3-3.5) g/dL Albumin/Globulin Ratio (1.2-2.2) TSH, Ultra Sensitive 11.929 H (0.358-3.740) uIU/mL Urine Color Yellow Urine Appearance Clear Urine pH 6.0 (4.5-8.0) Ur Specific [place] 1.015 (1.008-1.030) Urine Protein Negative (NEGATIVE) mg/dL Urine Glucose (UA) Normal (NEGATIVE) mg/dL Urine Ketones Negative (NEGATIVE) mg/dL Urine Occult Blood Negative (NEGATIVE) Urine Nitrite Negative (NEGAITVE) Urine Bilirubin Negative (NEGATIVE) Urine Urobilinogen Normal (NORMAL) mg/dL Ur Leukocyte Esterase Negative (NEGATIVE) Urine RBC 0-5 (0-5) Urine WBC 0-5 (0-5) Ur Epithelial Cells Few Amorphous Sediment Not seen Urine Bacteria Few Urine Mucus Not seen Meds: Medications Generic Name Dose Route Start Last Admin Trade Name Freq PRN Reason Stop Dose Admin Sodium Chloride 1,000 mls @ 999 mls/hr 01/02/19 11:30 01/02/19 12:48 Normal Saline IV 999 mls/hr ASDIRECTED ANNALISA Administration Sodium Chloride 1,000 mls @ 999 mls/hr 01/02/19 12:30 Normal Saline IV ASDIRECTED ANNALISA Potassium Chloride 20 meq/ 112 mls @ 56 mls/hr 01/02/19 13:45 01/02/19 13:44 Lidocaine HCl 2 ml/ Sodium IV 01/02/19 15:44 56 mls/hr Chloride ONETIME ONE Administration Discontinued Medications Generic Name Dose Route Start Last Admin Trade Name Zohra PRN Reason Stop Dose Admin Potassium Chloride 20 meq 01/02/19 12:50 01/02/19 13:44 Klor-Con M20 PO 01/02/19 12:51 20 meq ONETIME ONE Administration - Re-Assessments/Exams Free Text/Narrative Re-Assessment/Exam: 01/02/19 14:27 cat scan of the head is normal. His wbc was 14,500. his urine did not klook infected. He did appear to be dehydrated. Departure - Departure Time of Disposition: 14:28 Disposition: Admitted As Inpatient 66 Condition: Fair Clinical Impression: Dehydration, Elevated lactic acid level - Discharge Information Referrals: Maximiliano Narayanan MD [Primary Care Provider] - Care Plan Goals: admit to Dr Oliver. - My Orders Last 24 Hours: My Active Orders 01/02/19 11:30 Sodium Chloride 0.9% [Normal Saline] 1,000 ml IV ASDIRECTED 01/02/19 12:30 Sodium Chloride 0.9% [Normal Saline] 1,000 ml IV ASDIRECTED 01/02/19 13:05 Urinary Catheter Assessment [RC] ASDIRECTED 01/02/19 13:15 Hicks Catheter Insertion [Insert Urinary Catheter] [OM.PC] Q24H 01/02/19 13:28 CULTURE URINE [RM] Stat 01/02/19 13:45 Potassium Chloride 20 meq Lidocaine 1% [Xylocaine 1%] 2 ml Sodium Chloride 0.9 % [Normal Saline] 100 ml IV ONETIME - Assessment/Plan Last 24 Hours: My Active Orders 01/02/19 11:30 Sodium Chloride 0.9% [Normal Saline] 1,000 ml IV ASDIRECTED 01/02/19 12:30 Sodium Chloride 0.9% [Normal Saline] 1,000 ml IV ASDIRECTED 01/02/19 13:05 Urinary Catheter Assessment [RC] ASDIRECTED 01/02/19 13:15 Hicks Catheter Insertion [Insert Urinary Catheter] [OM.PC] Q24H 01/02/19 13:28 CULTURE URINE [RM] Stat 01/02/19 13:45 Potassium Chloride 20 meq Lidocaine 1% [Xylocaine 1%] 2 ml Sodium Chloride 0.9 % [Normal Saline] 100 ml IV ONETIME
--- NOTE | 2019-01-02 14:41 | PCM.HP ---
H&P History of Present Illness - General Date of Service: 01/02/19 Admit Problem/Dx: Admission Diagnosis/Problem Admission Diagnosis/Problem Syncope and collapse Source of Information: Patient, Family History Limitations: Reports: Other (Hard of hearing) - History of Present Illness Initial Comments - Free Text/Narative: Francine presents to the emergency room today after a syncopal episode at [facility]. History is a little bit difficult because of his difficulty hearing but overall he was able to answer most of the questions. His did participate some as well. She reports that they were at [employer] and he was sitting in a chair waiting. He suddenly started to slump over. She did not notice anything out of the ordinary prior to the event. She has not noticed anything out of the ordinary in the past few days and he says he's been feeling fine. He does not report headache, dizziness, chest pain, shortness of breath or abdominal pain. He has not had change in bowel or bladder habits. The patient's does note that he drinks very little during the course of the day and she is worried that he is dehydrated. They have not seen any fevers. He does not have any sick contacts. Workup in the emergency room revealed evidence for dehydration as well as a significant lactic acidosis and hypokalemia. There has been no evidence for infection. The patient was very confused upon arrival but has been waking up slowly as he is receiving IV fluids. He will be admitted for further hydration, electrolyte supplementation and monitoring. Neck Pain Score (Numeric/FACES): 2 - Related Data Allergies/Adverse Reactions: Allergies Allergy/AdvReac Type Severity Reaction Status Date / Time cimetidine [From Tagamet] Allergy Severe Airway Verified 01/02/19 11:27 Tightness cimetidine HCl [From Tagamet] Allergy Severe Airway Verified 01/02/19 11:27 Tightness naproxen [From Aleve] Allergy Nausea Verified 01/02/19 11:27 Home Medications: Home Meds Aspirin [Gabriella Chewable Aspirin] 81 mg PO DAILY 01/07/14 [History] Folic Acid 400 mcg PO DAILY 01/07/14 [History] Omeprazole 40 mg PO DAILY 02/22/14 [History] Donepezil HCl 10 mg PO DAILY 11/21/17 [History] Levothyroxine 25 mcg PO DAILY 11/21/17 [History] Methotrexate Sodium [Methotrexate] 12.5 mg PO WEEKLY 11/21/17 [History] hydroCHLOROthiazide [Hydrochlorothiazide] 25 mg PO DAILY 11/21/17 [History] predniSONE [Prednisone] 20 mg PO DAILY 11/21/17 [History] Candesartan Cilexetil [Atacand] 8 mg PO DAILY 12/13/18 [History] Ibuprofen [Advil] 800 mg PO BEDTIME 12/13/18 [History] Potassium Chloride [Klor-Con] 20 meq PO BID 12/13/18 [History] Past Medical History HEENT History: Reports: Hard of Hearing Cardiovascular History: Reports: High Cholesterol, Hypertension Respiratory History: Reports: COPD Gastrointestinal History: Reports: Gastritis, GERD Genitourinary History: Reports: Prostate Disorder Musculoskeletal History: Reports: RA Other Neuro History: hypoxic ASCHEMIC ENCEPHALOPATHY. post herpatic neuralgia Psychiatric History: Reports: Dementia Endocrine/Metabolic History: Reports: Hypothyroidism Hematologic History: Reports: Anemia Oncologic (Cancer) History: Reports: Prostate Other Dermatologic History: shingles - Infectious Disease History Infectious Disease History: Reports: Chicken Pox Social & Family History - Family History Family Medical History: Noncontributory - Tobacco Use Smoking Status *Q: Never Smoker - Caffeine Use Caffeine Use: Reports: None - Alcohol Use Alcohol Use History: No - Recreational Drug Use Recreational Drug Use: No - Living Situation & Occupation Living situation: Reports: with Significant Other Occupation: Retired (lives in [place], [place]. with A[employer] Nicole, retired.) H&P Review of Systems - Review of Systems: Review Of Systems: See Below Free Text/Narrative: A complete 12 point review of systems was obtained. Pertinent positives and negatives are noted in the history of present illness. All other systems were reviewed and were negative except as noted. Exam - Exam Exam: See Below - Vital Signs Vital Signs: Last Vital Signs Temp 34.5 C L 01/02/19 13:28 Pulse 66 01/02/19 13:28 Resp 14 01/02/19 13:29 BP 123/45 L 01/02/19 13:29 Pulse Ox 97 01/02/19 13:29 Weight: 73.936 kg - Exam Quality Assessment: No: Supplemental Oxygen General: Alert, Cooperative, Mild Distress HEENT: Pupils Equal. No: Mucosa Moist & [place] (dry), Scleral Icterus Neck: Supple, Trachea Midline. No: Lymphadenopathy, JVD Lungs: Clear to Auscultation, Normal Respiratory Effort Cardiovascular: Regular Rate, Regular Rhythm. No: Systolic Murmur GI/Abdominal Exam: Normal Bowel Sounds, Soft, Non-Tender, No Distention Extremities: No Pedal Edema. No: Joint Swelling, Increased Warmth Peripheral Pulses: 2+: Dorsalis Pedis (L), Dorsalis Pedis (R) Skin: Warm, Dry Neuro Extensive - Mental Status: Alert, Oriented x3, Nl Response to Commands Neuro Extensive - Motor, Sensory, Reflexes: No: Dysarthria, Abnormal Motor, Tremor Psychiatric: Alert, Normal Affect - Patient Data Lab Results Last 24 hrs: Laboratory Results - last 24 hr 01/02/19 01/02/19 01/02/19 Range/Units 11:22 11:22 11:22 WBC 14.8 H (4.5-11.0) K/uL RBC 3.72 L (4.30-5.90) M/uL Hgb 12.3 (12.0-15.0) g/dL Hct 36.4 L (40.0-54.0) % MCV 98 (80-98) fL MCH 33 H (27-31) pg MCHC 34 (32-36) % Plt Count 212 (150-400) K/uL Add Manual Diff Yes Neutrophils % (Manual) 55 (36-66) % Band Neutrophils % 2 L (5-11) % Lymphocytes % (Manual) 37 (24-44) % Monocytes % (Manual) 5 (2-6) % Eosinophils % (Manual) 1 L (2-4) % Sodium 139 L (140-148) mmol/L Potassium 3.0 L (3.6-5.2) mmol/L Chloride 102 (100-108) mmol/L Carbon Dioxide 29 (21-32) mmol/L Anion Gap 11.0 (5.0-14.0) mmol/L BUN 21 H (7-18) mg/dL Creatinine 1.5 H (0.8-1.3) mg/dL Est Cr Clr Drug Dosing 33.67 mL/min Estimated GFR (MDRD) 45 L (>60) Glucose 125 H (74-106) mg/dL Lactic Acid 4.9 H (0.4-2.0) mmol/L Calcium 8.7 (8.5-10.1) mg/dL Total Bilirubin 0.5 (0.2-1.0) mg/dL AST 26 (15-37) U/L ALT 35 (12-78) U/L Alkaline Phosphatase 58 (46-116) U/L Total Protein 6.0 L (6.4-8.2) g/dL Albumin 2.7 L (3.4-5.0) g/dL Globulin 3.3 (2.3-3.5) g/dL Albumin/Globulin Ratio 0.8 L (1.2-2.2) TSH, Ultra Sensitive (0.358-3.740) uIU/mL Urine Color Urine Appearance Urine pH (4.5-8.0) Ur Specific [place] (1.008-1.030) Urine Protein (NEGATIVE) mg/dL Urine Glucose (UA) (NEGATIVE) mg/dL Urine Ketones (NEGATIVE) mg/dL Urine Occult Blood (NEGATIVE) Urine Nitrite (NEGAITVE) Urine Bilirubin (NEGATIVE) Urine Urobilinogen (NORMAL) mg/dL Ur Leukocyte Esterase (NEGATIVE) Urine RBC (0-5) Urine WBC (0-5) Ur Epithelial Cells Amorphous Sediment Urine Bacteria Urine Mucus 01/02/19 01/02/19 Range/Units 11:22 13:04 WBC (4.5-11.0) K/uL RBC (4.30-5.90) M/uL Hgb (12.0-15.0) g/dL Hct (40.0-54.0) % MCV (80-98) fL MCH (27-31) pg MCHC (32-36) % Plt Count (150-400) K/uL Add Manual Diff Neutrophils % (Manual) (36-66) % Band Neutrophils % (5-11) % Lymphocytes % (Manual) (24-44) % Monocytes % (Manual) (2-6) % Eosinophils % (Manual) (2-4) % Sodium (140-148) mmol/L Potassium (3.6-5.2) mmol/L Chloride (100-108) mmol/L Carbon Dioxide (21-32) mmol/L Anion Gap (5.0-14.0) mmol/L BUN (7-18) mg/dL Creatinine (0.8-1.3) mg/dL Est Cr Clr Drug Dosing mL/min Estimated GFR (MDRD) (>60) Glucose (74-106) mg/dL Lactic Acid (0.4-2.0) mmol/L Calcium (8.5-10.1) mg/dL Total Bilirubin (0.2-1.0) mg/dL AST (15-37) U/L ALT (12-78) U/L Alkaline Phosphatase (46-116) U/L Total Protein (6.4-8.2) g/dL Albumin (3.4-5.0) g/dL Globulin (2.3-3.5) g/dL Albumin/Globulin Ratio (1.2-2.2) TSH, Ultra Sensitive 11.929 H (0.358-3.740) uIU/mL Urine Color Yellow Urine Appearance Clear Urine pH 6.0 (4.5-8.0) Ur Specific [place] 1.015 (1.008-1.030) Urine Protein Negative (NEGATIVE) mg/dL Urine Glucose (UA) Normal (NEGATIVE) mg/dL Urine Ketones Negative (NEGATIVE) mg/dL Urine Occult Blood Negative (NEGATIVE) Urine Nitrite Negative (NEGAITVE) Urine Bilirubin Negative (NEGATIVE) Urine Urobilinogen Normal (NORMAL) mg/dL Ur Leukocyte Esterase Negative (NEGATIVE) Urine RBC 0-5 (0-5) Urine WBC 0-5 (0-5) Ur Epithelial Cells Few Amorphous Sediment Not seen Urine Bacteria Few Urine Mucus Not seen Result Diagrams: 01/02/19 11:22 01/02/19 11:22 Imaging Impressions Last 24 hrs: CXR - images personally reviewed - lungs are clear with no mass, infiltrate or effusion Head CT - no mass, bleed or stroke. There is some CSVID and appropriate age related atrophy *Q Meaningful Use (ADM) - VTE Risk Assess *Q Each Risk Factor Represents 1 Point: Obesity ( BMI > 25 kg/m2), Abnormal Pulmonary Function (COPD) Total Score 1 Point Risk Factors: 2 Each Risk Factor Represents 2 Points: Malignancy (present or previous) Total Score 2 Point Risk Factors: 2 Each Risk Factor Represents 3 Points: Age 75 Years or Greater Total Score 3 Point Risk Factors: 3 Each Risk Factor Represents 5 Points: None Total Score 5 Point Risk Factors: 0 Venous Thromboembolism Risk Factor Score *Q: 7 - Problem List (1) Syncope and collapse SNOMED Code(s): 288018829 ICD Code: R55 - SYNCOPE AND COLLAPSE Status: Acute Current Visit: Yes (2) Severe dehydration SNOMED Code(s): 731276743 ICD Code: E86.0 - DEHYDRATION Status: Acute Current Visit: Yes (3) Elevated lactic acid level SNOMED Code(s): 3874204 ICD Code: R79.89 - OTHER SPECIFIED ABNORMAL FINDINGS OF BLOOD CHEMISTRY Status: Acute Current Visit: Yes (4) Hypokalemia due to loss of potassium SNOMED Code(s): 15107440 ICD Code: E87.6 - HYPOKALEMIA Status: Acute Current Visit: Yes (5) Alzheimer's dementia without behavioral disturbance SNOMED Code(s): 62320733 ICD Code: G30.9 - ALZHEIMER'S DISEASE, UNSPECIFIED; F02.80 - DEMENTIA IN OTH DISEASES CLASSD ELSWHR W/O BEHAVRL DISTURB Status: Chronic Current Visit: Yes Qualifiers: Alzheimer's disease onset: late-onset Qualified Code(s): G30.1 - Alzheimer' s disease with late onset; F02.80 - Dementia in other diseases classified elsewhere without behavioral disturbance (6) Confusion SNOMED Code(s): 237318202 ICD Code: R41.0 - DISORIENTATION, UNSPECIFIED Status: Acute Current Visit : No (7) Rheumatoid arthritis SNOMED Code(s): 08936188 ICD Code: M06.9 - RHEUMATOID ARTHRITIS, UNSPECIFIED Status: Chronic Priority: Low Current Visit: No Problem List Initiated/Reviewed/Updated: Yes Orders Last 24hrs: Active Orders 24 hr Category Date Time Status Patient Status Manage Transfer [TRANSFER] Routine ADT 01/02/19 14:27 Ordered Hicks Catheter Insertion [Insert Urinary Catheter] [OM. Care 01/02/19 13:15 Ordered PC] Q24H Urinary Catheter Assessment [RC] ASDIRECTED Care 01/02/19 13:05 Active CULTURE URINE [RM] Stat Lab 01/02/19 13:28 Ordered Potassium Chloride 20 meq Med 01/02/19 13:45 Active Lidocaine 1% [Xylocaine 1%] 2 ml Sodium Chloride 0.9% [Normal Saline] 100 ml IV ONETIME Sodium Chloride 0.9% [Normal Saline] 1,000 ml Med 01/02/19 11:30 Active IV ASDIRECTED Sodium Chloride 0.9% [Normal Saline] 1,000 ml Med 01/02/19 12:30 Active IV ASDIRECTED Resuscitation Status Routine Resus Stat 01/02/19 14:31 Ordered Medication Orders Sodium Chloride (Normal Saline) 1,000 mls @ 999 mls/hr IV ASDIRECTED [facility] Last Admin: 01/02/19 12:48 Dose: 999 mls/hr Infusion: 01/02/19 12:16 Dose: 999 mls/hr Admin: 01/02/19 11:15 Dose: 999 mls/hr Sodium Chloride (Normal Saline) 1,000 mls @ 999 mls/hr IV ASDIRECTED ANNALISA Potassium Chloride 20 meq/Lidocaine HCl 2 ml/ Sodium Chloride 112 mls @ 56 mls/ hr IV ONETIME ONE Stop: 01/02/19 15:44 Last Admin: 01/02/19 13:44 Dose: 56 mls/hr Assessment/Plan Comment:: ASSESSMENT AND PLAN - Syncope and collapse - I believe this is related to significant dehydration as discussed below. Physical exam is relatively benign at this time. No significant hyper or hypotension and no dysrhythmia noted at this point. No evidence for infection. Mental status slowly improving as he's been hydrated. -IV fluids as discussed below Severe dehydration with significant lactic acidosis - syncopal episode brought this to attention today but I suspect it has been a slow progression with more acute change. He has poor oral intake and he is on a diuretic. Lactic acid level is nearly 5 with no evidence for infection. -Discontinue hydrochlorothiazide -Continue IV fluids throughout the night -Repeat lactic acid until it normalizes with IV fluids -Repeat additional labs in the morning Hypokalemia - Likely secondary to renal losses as he is on a diuretic. He is on a supplement at home. He has received 40 mEq in the emergency room. -Recheck this afternoon and in the morning -Replace as indicated Stage III chronic kidney disease - creatinine higher than baseline but does not quite meet criteria for acute kidney injury. -IV fluids as above and labs in the morning Alzheimer's dementia without behavioral disturbance - Mild, stable at this time. Rheumatoid arthritis - recent initiation of high-dose prednisone. Currently on 20 mg daily. -Continue prednisone Maintenance issues - - DVT prophylaxis - Enoxaparin - GI prophylaxis - PPI - Nutrition - Regular diet - Hicks catheter - Placed in the emergency room, anticipate trial of voiding in the morning CODE STATUS - DNR/DNI Admission justification - This patient will be admitted for inpatient services and is medically appropriate meeting medical necessity for inpatient admission as outlined in my documentation. I reasonably expect the patient will require inpatient services that span a period time over 2 midnights. I reasonably expect this patient to be discharged or transferred within 96 hours after admission to the [facility]. Multiple acute medical problems complicating a variety of chronic medical problems. Disposition - I would anticipate discharge to home with his after the hospital stay Primary care physician - Dr. Lady Oliver M.D.
[2019-01-02] MEDS ORDERED: Polyethylene Glycol 3350 Powder 17 GM Packet PO PRN (15:02)
[2019-01-02] MEDS ORDERED: NS + KCl 20mEq/L 1,000 ML IV SCH (15:02)
[2019-01-02] MEDS ORDERED: Acetaminophen 325 MG Tab PO PRN (15:02)
[2019-01-02] MEDS ORDERED: Ondansetron 4 MG Tab.DIS PO PRN (15:02)
[2019-01-02] MEDS: Magnesium Sulfate/Water 2 GM in Premix Bag 1 BAG IV SCH ×2 (18:47→23:19)
[2019-01-02] MEDS ORDERED: LORazepam 2 MG/ML SDV IVPUSH PRN (20:48)
[2019-01-02] MEDS ORDERED: Melatonin 3 MG Tab PO SCH (21:00)
[2019-01-03] MEDS ORDERED: Pantoprazole 40 MG Tab.CR PO SCH (07:30)
[2019-01-03] MEDS ORDERED: Levothyroxine 25 MCG Tab PO SCH (07:30)
[2019-01-03] MEDS ORDERED: predniSONE 20 MG Tab PO SCH (08:00)
[2019-01-03] MEDS ORDERED: Losartan 50 MG Tab PO SCH (09:00)
[2019-01-03] MEDS ORDERED: Aspirin 81 MG Tab.Chew PO SCH (09:00)
[2019-01-03] MEDS ORDERED: Folic Acid 1 MG Tab PO SCH (09:00)
[2019-01-03] MEDS ORDERED: Donepezil 10 MG Tab PO SCH (09:00)
[2019-01-03] MEDS ORDERED: Enoxaparin 40 MG/0.4 ML Syringe SUBCUT SCH (09:00)
[2019-01-03 11:33] VITALS: BP 128/62
--- NOTE | 2019-01-03 14:24 | PCM.DCSUM1 ---
Discharge Summary - Hospital Course Brief History: 83-year-old male with history of Alzheimer's dementia,essential hypertension, rheumatoid arthritis on chronic prednisone therapy who presented after an episode of syncope. He was admitted for management of weakness, dehydration and hypokalemia. Diagnosis: Stroke: No - Discharge Data Discharge Date: 01/03/19 Discharge Disposition: Home, [facility] 06 Condition: Fair - Discharge Diagnosis/Problem(s) (1) Syncope and collapse SNOMED Code(s): 570167707 ICD Code: R55 - SYNCOPE AND COLLAPSE Status: Acute (2) Severe dehydration SNOMED Code(s): 024168495 ICD Code: E86.0 - DEHYDRATION Status: Acute (3) Elevated lactic acid level SNOMED Code(s): 0846014 ICD Code: R79.89 - OTHER SPECIFIED ABNORMAL FINDINGS OF BLOOD CHEMISTRY Status: Acute (4) Hypokalemia due to loss of potassium SNOMED Code(s): 70658592 ICD Code: E87.6 - HYPOKALEMIA Status: Acute (5) Alzheimer's dementia without behavioral disturbance SNOMED Code(s): 46943842 ICD Code: G30.9 - ALZHEIMER'S DISEASE, UNSPECIFIED; F02.80 - DEMENTIA IN OTH DISEASES CLASSD ELSWHR W/O BEHAVRL DISTURB Status: Chronic Qualifiers: Alzheimer's disease onset: late-onset Qualified Code(s): G30.1 - Alzheimer' s disease with late onset; F02.80 - Dementia in other diseases classified elsewhere without behavioral disturbance (6) Confusion SNOMED Code(s): 707168527 ICD Code: R41.0 - DISORIENTATION, UNSPECIFIED Status: Acute (7) Rheumatoid arthritis SNOMED Code(s): 78977434 ICD Code: M06.9 - RHEUMATOID ARTHRITIS, UNSPECIFIED Status: Chronic Priority: Low - Patient Summary/Data Consults: Consultations 01/03/19 07:00 PT Evaluation and Treatment [CONS] Routine Please Evaluate and Treat. PT Reason for Consult: Ambulation This query below is only for informational purposes and is not editable. Hospital Course: Francine presented to the emergency room by ambulance after a syncopal episode at [facility]. Workup in the emergency room revealed a mild leukocytosis with hypokalemia and lactic acidosis. Chest x-ray, urinalysis and examination were not suggestive of infection and there was no fever. He received IV fluids and potassium in the emergency room and was admitted for further hydration, electrolyte replacement and additional monitoring for potential causes of syncope. At the time of admission severe dehydration was suspected as the cause for syncope. The patient per the report of his drinks very little water or fluid during the day. He is on a diuretic to help control a previous hypertension. The hydrochlorothiazide was discontinued at the time of admission. He received IV fluids overnight and potassium replacement. His potassium has normalized. His dehydration has improved significantly. Because of his weakness he did see physical therapy the morning after admission. Initially there was concern about his strength and ability to get around safely at home. Repeat evaluation later in the day showed significant improvement. His felt that he was strong enough to be safe at home. They have home health care with a variety of services set up to help him do as well as possible at home with the next evaluation coming tomorrow. His felt like he would be safe for discharge at this time. She has lots of services. At the time of discharge we did discontinue hydrochlorothiazide as well as his potassium supplement. His home care orders will be resumed. At the time of admission I suspected that it would take a hospital stay spanning at least 2 midnights to correct his electrolytes, dehydration and improve his strength to the point that he would be safe. I suspected this because of his chronic health conditions including rheumatoid arthritis and also immersed dementia. He improved much more quickly than I anticipated and was ready for discharge following a hospital stay that span only one midnight. - Patient Instructions Diet: Regular Diet as Tolerated Activity: As Tolerated Showering/Bathing: May Shower Notify Provider of: Fever, Increased Pain, Nausea and/or Vomiting Other/Special Instructions: 1. You were in the hospital for management of weakness, dehydration and low potassium levels that were discovered following an episode of syncope. Your electrolytes have improved with replacement. I suspect that all of the above issues are related to your use of hydrochlorothiazide. I recommend that this be stopped indefinitely. You may also stop taking your potassium supplements. You have follow-up next week and your blood pressure can be checked at that time. Please do your best to drink fluids during the day to avoid dehydration. You should drink at least 32 ounces of water daily with a goal of 64 ounces. 2. Continue your other home medications as previously prescribed. 3. Follow up with Dr. Narayanan next week as scheduled. 4. Resume your previous home health care orders with Prab[facility] Villagomez. 5. Seek medical attention if you fever greater than 101, profound weakness or if you have recurrence of the syncope. - Discharge Plan *PRESCRIPTION DRUG MONITORING PROGRAM REVIEWED*: Not Applicable *COPY OF PRESCRIPTION DRUG MONITORING REPORT IN PATIENT MELISSA: Not Applicable Home Medications: Home Meds Aspirin [Gabriella Chewable Aspirin] 81 mg PO DAILY 01/07/14 [History] Folic Acid 400 mcg PO DAILY 01/07/14 [History] Omeprazole 40 mg PO DAILY 02/22/14 [History] Donepezil HCl 10 mg PO DAILY 11/21/17 [History] Levothyroxine 25 mcg PO DAILY 11/21/17 [History] Methotrexate Sodium [Methotrexate] 12.5 mg PO WEEKLY 11/21/17 [History] predniSONE [Prednisone] 20 mg PO DAILY 11/21/17 [History] Candesartan Cilexetil [Atacand] 8 mg PO DAILY 12/13/18 [History] Ibuprofen [Advil] 800 mg PO BEDTIME 12/13/18 [History] Oxygen Therapy Mode: Room Air Patient Handouts: Dehydration, Elderly, [id number] Referrals: Maximiliano Narayanan MD [Primary Care Provider] - (f/u as scheduled next week ) - Discharge Summary/Plan Comment DC Time >30 min.: No - Patient Data Vitals - Most Recent: Last Vital Signs Temp 36.6 C 01/03/19 11:32 Pulse 67 01/03/19 11:32 Resp 18 01/03/19 11:32 BP 128/62 01/03/19 11:32 Pulse Ox 94 L 01/03/19 11:32 Weight - Most Recent: 78.154 kg I&O - Last 24 hours: Intake & Output 01/02/19 01/03/19 01/03/19 22:59 06:59 14:59 Intake Total 1685 Output Total 150 Balance 1535 Lab Results - Last 24 hrs: Laboratory Results - last 24 hr 01/02/19 01/02/19 01/03/19 Range/Units 17:12 17:12 05:27 WBC 11.2 H (4.5-11.0) K/uL RBC 3.54 L (4.30-5.90) M/uL Hgb 11.5 L (12.0-15.0) g/dL Hct 35.2 L (40.0-54.0) % MCV 99 H (80-98) fL MCH 33 H (27-31) pg MCHC 33 (32-36) % Plt Count 165 (150-400) K/uL Sodium (140-148) mmol/L Potassium 3.6 (3.6-5.2) mmol/L Chloride (100-108) mmol/L Carbon Dioxide (21-32) mmol/L Anion Gap (5.0-14.0) mmol/L BUN (7-18) mg/dL Creatinine (0.8-1.3) mg/dL Est Cr Clr Drug Dosing mL/min Estimated GFR (MDRD) (>60) Glucose (74-106) mg/dL Lactic Acid 1.8 (0.4-2.0) mmol/L Calcium (8.5-10.1) mg/dL Magnesium 1.5 L D (1.8-2.4) mg/dL 01/03/19 Range/Units 05:27 WBC (4.5-11.0) K/uL RBC (4.30-5.90) M/uL Hgb (12.0-15.0) g/dL Hct (40.0-54.0) % MCV (80-98) fL MCH (27-31) pg MCHC (32-36) % Plt Count (150-400) K/uL Sodium 138 L (140-148) mmol/L Potassium 4.5 (3.6-5.2) mmol/L Chloride 107 (100-108) mmol/L Carbon Dioxide 23 (21-32) mmol/L Anion Gap 12.5 (5.0-14.0) mmol/L BUN 12 (7-18) mg/dL Creatinine 1.0 (0.8-1.3) mg/dL Est Cr Clr Drug Dosing 50.51 mL/min Estimated GFR (MDRD) > 60 (>60) Glucose 81 (74-106) mg/dL Lactic Acid (0.4-2.0) mmol/L Calcium 8.5 (8.5-10.1) mg/dL Magnesium (1.8-2.4) mg/dL SIRIA Results - Last 24 hrs: Microbiology 01/02/19 11:15 Urine Culture - Preliminary Urine, Bladder NO GROWTH AFTER 1 DAY Med Orders - Current: Current Medications Acetaminophen (Tylenol) 650 mg PO Q4H PRN PRN Reason: Pain (Mild 1-3)/fever Aspirin (Aspirin) 81 mg PO DAILY [facility] Last Admin: 01/03/19 08:09 Dose: 81 mg Donepezil HCl (Aricept) 10 mg PO DAILY [facility] Last Admin: 01/03/19 08:09 Dose: 10 mg Folic Acid (Folic Acid) 0.5 mg PO DAILY [facility] Last Admin: 01/03/19 08:10 Dose: 0.5 mg Levothyroxine Sodium (Levothyroxine) 37.5 mcg PO DAILY@0730 [facility] Last Admin: 01/03/19 08:08 Dose: 37.5 mcg Lorazepam (Ativan) 0.5 - 1 mg IVPUSH Q4H PRN PRN Reason: Anxiety Last Admin: 01/02/19 21:02 Dose: 1 mg Losartan Potassium (Cozaar) 25 mg PO DAILY [facility] Last Admin: 01/03/19 08:09 Dose: 25 mg Melatonin (Melatonin) 9 mg PO BEDTIME [facility] Last Admin: 01/02/19 21:05 Dose: 9 mg Ondansetron HCl (Zofran Odt) 4 mg PO Q6H PRN PRN Reason: Nausea able to take PO Pantoprazole Sodium (Protonix) 40 mg PO ACBREAKFAST [facility] Last Admin: 01/03/19 08:09 Dose: 40 mg Polyethylene Glycol (Miralax) 17 gm PO DAILY PRN PRN Reason: Constipation Prednisone (Prednisone) 20 mg PO DAILY@0800 [facility] Last Admin: 01/03/19 08:09 Dose: 20 mg Discontinued Medications Enoxaparin Sodium (Lovenox) 40 mg SUBCUT DAILY [facility] Last Admin: 01/03/19 08:10 Dose: 40 mg Sodium Chloride (Normal Saline) 1,000 mls @ 999 mls/hr IV ASDIRECTED [facility] Last Admin: 01/02/19 12:48 Dose: 999 mls/hr Sodium Chloride (Normal Saline) 1,000 mls @ 999 mls/hr IV ASDIRECTED [facility] Potassium Chloride 20 meq/Lidocaine HCl 2 ml/ Sodium Chloride 112 mls @ 56 mls/ hr IV ONETIME ONE Stop: 01/02/19 15:44 Last Admin: 01/02/19 13:44 Dose: 56 mls/hr Potassium Chloride/Sodium Chloride (Normal Saline With 20 Meq Kcl) 1,000 mls @ 125 mls/hr IV ASDIRECTED [facility] Magnesium Sulfate 2 gm/ Premix 50 mls @ 12.5 mls/hr IV Q6H ANNALISA Stop: 01/03/19 03:59 Last Admin: 01/02/19 23:19 Dose: 12.5 mls/hr Potassium Chloride (Klor-Con M20) 20 meq PO ONETIME ONE Stop: 01/02/19 12:51 Last Admin: 01/02/19 13:44 Dose: 20 meq Potassium Chloride (Klor-Con M20) 40 meq PO ONETIME ONE Stop: 01/02/19 18:00 Last Admin: 01/02/19 18:47 Dose: 40 meq - Exam Quality Assessment: Denies: Supplemental Oxygen General: Reports: Alert, Cooperative, No Acute Distress. Denies: Oriented Lungs: Reports: Normal Respiratory Effort Cardiovascular: Reports: Regular Rate, Regular Rhythm GI/Abdominal Exam: Soft, No Distention Skin: Reports: Warm, Dry Psy/Mental Status: Reports: Alert, Normal Affect
== END 2019-01-03 14:45 | disposition home health service (06) | DRG 641 ==
LOC: JP.ED 11:10 → JP.MS 14:27
PROVIDERS: ADMIT Internal Medicine; ATTEND Internal Medicine
DX: E86.0 Dehydration (principal); Z66 Do not resuscitate; R55 Syncope and collapse; T50.2X5A Adverse effect of carbonic-anhydrase inhibitors, benzothiadiazides and other diuretics, initial encounter; Y92.512 Supermarket, store or market as the place of occurrence of the external cause; E87.2 Acidosis; I12.9 Hypertensive chronic kidney disease with stage 1 through stage 4 chronic kidney disease, or unspecified chronic kidney disease; E03.9 Hypothyroidism, unspecified; N18.3 Chronic kidney disease, stage 3 (moderate); M06.9 Rheumatoid arthritis, unspecified; E87.6 Hypokalemia; G30.9 Alzheimer's disease, unspecified; F02.80 Dementia in other diseases classified elsewhere, unspecified severity, without behavioral disturbance, psychotic disturbance, mood disturbance, and anxiety; E78.00 Pure hypercholesterolemia, unspecified; K21.9 Gastro-esophageal reflux disease without esophagitis; Z85.46 Personal history of malignant neoplasm of prostate; H91.90 Unspecified hearing loss, unspecified ear; Z79.82 Long term (current) use of aspirin; Z79.52 Long term (current) use of systemic steroids; Z88.8 Allergy status to other drugs, medicaments and biological substances; R41.0 Disorientation, unspecified
CPT/HCPCS: 36415; 51701; 70450; 71045; 80048; 80053; 81001; 83605; 83735; 84132; 84443; 85025; 85027; 87086; 96360; 96361; 97161-GP; 97530-GP; 99284; 99285-25; A9270-GY; J1650; J2001; J2060; J3475; J3480; J7030

== ENCOUNTER 2019-01-10 02:15 | Emergency (ER) | payer MEDICARE ==
--- NOTE | 2019-01-10 02:44 | EDM.PDOC ---
ED HPI GENERAL MEDICAL PROBLEM - General Chief Complaint: General Stated Complaint: MEDICAL [facility]IA [facility] Time Seen by Provider: 01/10/19 02:30 Source of Information: Reports: Patient, EMS, Family, Old Records, RN History Limitations: Reports: Other (Patient with dementia) - History of Present Illness INITIAL COMMENTS - FREE TEXT/NARRATIVE: 83 yo male here via EMS with worsening confusion. His called EMS when Francine got up and got dressed and told her he was going out to milk the cows. 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 Was recently hospitalized here briefly for electrolyte abnormalities, syncope and dehydration. Onset: Gradual Duration: Chronic, Getting Worse Location: Reports: Generalized Quality: Reports: Other (no pain reported, chronic confusion, getting worse. ) Severity: Severe Improves with: Reports: None Worsens with: Reports: Other (time) Context: Reports: Other (see HPI) Associated Symptoms: Reports: Confusion Treatments DENTAL TECHNOLOGY ADVISOR: Reports: Other (see below) (none) - Related Data Allergies Allergy/AdvReac Type Severity Reaction Status Date / Time cimetidine [From Tagamet] Allergy Severe Airway Verified 01/02/19 11:27 Tightness cimetidine HCl [From Tagamet] Allergy Severe Airway Verified 01/02/19 11:27 Tightness naproxen [From Aleve] Allergy Nausea Verified 01/02/19 11:27 Home Meds: Home Meds Aspirin [Gabriella Chewable Aspirin] 81 mg PO DAILY 01/07/14 [History] Folic Acid 400 mcg PO DAILY 01/07/14 [History] Omeprazole 40 mg PO DAILY 02/22/14 [History] Donepezil HCl 10 mg PO DAILY 11/21/17 [History] Levothyroxine 37.5 mcg PO DAILY 11/21/17 [History] Methotrexate Sodium [Methotrexate] 12.5 mg PO WEEKLY 11/21/17 [History] predniSONE [Prednisone] 20 mg PO DAILY 11/21/17 [History] Candesartan Cilexetil [Atacand] 8 mg PO DAILY 12/13/18 [History] Ibuprofen [Advil] 800 mg PO BEDTIME 12/13/18 [History] Past Medical History HEENT History: Reports: Hard of Hearing Cardiovascular History: Reports: High Cholesterol, Hypertension Respiratory History: Reports: COPD Gastrointestinal History: Reports: Gastritis, GERD Genitourinary History: Reports: Prostate Disorder Musculoskeletal History: Reports: RA Other Neuro History: hypoxic ASCHEMIC ENCEPHALOPATHY. post herpatic neuralgia Psychiatric History: Reports: Dementia Endocrine/Metabolic History: Reports: Hypothyroidism Hematologic History: Reports: Anemia Oncologic (Cancer) History: Reports: Prostate Other Dermatologic History: shingles - Infectious Disease History Infectious Disease History: Reports: Chicken Pox, Measles, Mumps Social & Family History - Family History Family Medical History: Noncontributory - Tobacco Use Smoking Status *Q: Current Every Day Smoker Years of Tobacco use: 70 Packs/Tins Daily: 0.5 - Caffeine Use Caffeine Use: Reports: Coffee, Soda, Tea - Alcohol Use Days Per Week of Alcohol Use: 1 Number of Drinks Per Day: 2 Total Drinks Per Week: 2 - Recreational Drug Use Recreational Drug Use: No - Living Situation & Occupation Living situation: Reports: with Significant Other Occupation: Retired (lives in [place], [place]. with [employer], retired.) ED ROS GENERAL - Review of Systems Review Of Systems: See Below Constitutional: Reports: No Symptoms HEENT: Reports: No Symptoms Respiratory: Reports: No Symptoms Cardiovascular: Reports: No Symptoms Endocrine: Reports: No Symptoms GI/Abdominal: Reports: No Symptoms : Reports: No Symptoms Musculoskeletal: Reports: No Symptoms Skin: Reports: No Symptoms Neurological: Reports: Confusion Psychiatric: Reports: Confusion ED EXAM, GENERAL - Physical Exam Exam: See Below Exam Limited By: No Limitations General Appearance: Alert, WD/WN, No Apparent Distress Eye Exam: Bilateral Eye: Normal Inspection Ears: Normal External Exam, Normal Canal, Hearing Loss (hearing aids present) Ear Exam: Bilateral Ear: Auricle Normal, Canal Normal Nose: Normal Inspection, No Blood Throat/Mouth: Normal Inspection, Normal Lips, Normal Oropharynx, Normal Voice, No Airway Compromise Head: Atraumatic, Normocephalic Neck: Normal Inspection Respiratory/Chest: No Respiratory Distress, Lungs Clear, Normal Breath Sounds, No Accessory Muscle Use Cardiovascular: Regular Rate, Rhythm, No Edema GI/Abdominal: Normal Bowel Sounds, Soft, Non-Tender, No Distention Back Exam: Normal Inspection. No: CVA Tenderness (R), CVA Tenderness (L) Extremities: Normal Inspection, Normal Range of Motion, Non-Tender, No Pedal Edema Neurological: Alert, CN II-XII Intact, No Motor/Sensory Deficits, Disoriented Psychiatric: Normal Affect, Normal Mood Skin Exam: Warm, Dry, Intact, Normal Color, No Rash Course - Vital Signs Last Recorded V/S: Last Vital Signs Temp 36.6 C 01/10/19 02:15 Pulse 87 01/10/19 02:15 Resp 18 01/10/19 02:15 BP 166/87 H 01/10/19 02:15 Pulse Ox 94 L 01/10/19 02:15 - Orders/Labs/Meds Labs: Laboratory Tests 01/10/19 01/10/19 01/10/19 Range/Units 02:31 02:42 02:42 WBC 11.1 H (4.5-11.0) K/uL RBC 3.59 L (4.30-5.90) M/uL Hgb 11.5 L (12.0-15.0) g/dL Hct 36.0 L (40.0-54.0) % MCV 100 H (80-98) fL MCH 32 H (27-31) pg MCHC 32 (32-36) % Plt Count 239 (150-400) K/uL Sodium 143 (140-148) mmol/L Potassium 3.2 L (3.6-5.2) mmol/L Chloride 105 (100-108) mmol/L Carbon Dioxide 27 (21-32) mmol/L Anion Gap 14.2 H (5.0-14.0) mmol/L BUN 16 (7-18) mg/dL Creatinine 1.2 (0.8-1.3) mg/dL Est Cr Clr Drug Dosing 42.09 mL/min Estimated GFR (MDRD) 58 L (>60) Glucose 87 (74-106) mg/dL Calcium 8.9 (8.5-10.1) mg/dL Magnesium (1.8-2.4) mg/dL Troponin I 0.022 (0.000-0.056) ng/mL Urine Color Yellow Urine Appearance Clear Urine pH 5.0 (4.5-8.0) Ur Specific [place] 1.020 (1.008-1.030) Urine Protein Negative (NEGATIVE) mg/dL Urine Glucose (UA) Normal (NEGATIVE) mg/dL Urine Ketones Negative (NEGATIVE) mg/dL Urine Occult Blood Trace (NEGATIVE) Urine Nitrite Negative (NEGAITVE) Urine Bilirubin Negative (NEGATIVE) Urine Urobilinogen 1 (NORMAL) mg/dL Ur Leukocyte Esterase Negative (NEGATIVE) Urine RBC 0-5 (0-5) Urine WBC 0-5 (0-5) Ur Epithelial Cells Rare Amorphous Sediment Not seen Urine Bacteria Not seen Urine Mucus Not seen 01/10/19 Range/Units 02:42 WBC (4.5-11.0) K/uL RBC (4.30-5.90) M/uL Hgb (12.0-15.0) g/dL Hct (40.0-54.0) % MCV (80-98) fL MCH (27-31) pg MCHC (32-36) % Plt Count (150-400) K/uL Sodium (140-148) mmol/L Potassium (3.6-5.2) mmol/L Chloride (100-108) mmol/L Carbon Dioxide (21-32) mmol/L Anion Gap (5.0-14.0) mmol/L BUN (7-18) mg/dL Creatinine (0.8-1.3) mg/dL Est Cr Clr Drug Dosing mL/min Estimated GFR (MDRD) (>60) Glucose (74-106) mg/dL Calcium (8.5-10.1) mg/dL Magnesium 1.7 L (1.8-2.4) mg/dL Troponin I (0.000-0.056) ng/mL Urine Color Urine Appearance Urine pH (4.5-8.0) Ur Specific [place] (1.008-1.030) Urine Protein (NEGATIVE) mg/dL Urine Glucose (UA) (NEGATIVE) mg/dL Urine Ketones (NEGATIVE) mg/dL Urine Occult Blood (NEGATIVE) Urine Nitrite (NEGAITVE) Urine Bilirubin (NEGATIVE) Urine Urobilinogen (NORMAL) mg/dL Ur Leukocyte Esterase (NEGATIVE) Urine RBC (0-5) Urine WBC (0-5) Ur Epithelial Cells Amorphous Sediment Urine Bacteria Urine Mucus Meds: Medications Discontinued Medications Generic Name Dose Route Start Last Admin Trade Name Freq PRN Reason Stop Dose Admin Magnesium Oxide 800 mg 01/10/19 03:15 01/10/19 03:20 Magnesium Oxide PO 01/10/19 03:16 800 mg ONETIME ONE Administration Potassium Chloride 20 meq 01/10/19 03:14 01/10/19 03:20 Potassium Chloride PO 01/10/19 03:15 20 meq ONETIME ONE Administration Departure - Departure Time of Disposition: 03:22 Disposition: Home, Self-Care 01 Condition: Fair Clinical Impression: Hypokalemia, Hypomagnesemia Dementia Qualifiers: Dementia type: unspecified type Dementia behavioral disturbance: without behavioral disturbance Qualified Code(s): F03.90 - Unspecified dementia without behavioral disturbance - Discharge Information *PRESCRIPTION DRUG MONITORING PROGRAM REVIEWED*: No *COPY OF PRESCRIPTION DRUG MONITORING REPORT IN PATIENT MELISSA: No Instructions: Hypokalemia Referrals: PCP,None [Primary Care Provider] - Forms: ED Department Discharge Additional Instructions: Take potassium 20 meq every day. See your doctor later today for recheck. Discuss with your doctor your ability to handle L[place] at home.
[2019-01-10 02:54] VITALS: BP 166/87
[2019-01-10] MEDS ORDERED: Potassium Chloride 10 MEQ Cap.ER PO ONE (03:14)
[2019-01-10] MEDS ORDERED: Magnesium Oxide 400 MG Tab PO ONE (03:15)
== END 2019-01-10 03:40 | disposition home or self-care (01) ==
LOC: JP.ED 02:15
DX: F03.90 Unspecified dementia, unspecified severity, without behavioral disturbance, psychotic disturbance, mood disturbance, and anxiety (principal); E87.6 Hypokalemia; E83.42 Hypomagnesemia; E78.00 Pure hypercholesterolemia, unspecified; I10 Essential (primary) hypertension; J44.9 Chronic obstructive pulmonary disease, unspecified; K21.9 Gastro-esophageal reflux disease without esophagitis; E03.9 Hypothyroidism, unspecified; F17.210 Nicotine dependence, cigarettes, uncomplicated; Z79.82 Long term (current) use of aspirin; Z88.8 Allergy status to other drugs, medicaments and biological substances; Z79.899 Other long term (current) drug therapy
CPT/HCPCS: 36415; 80048; 81001; 83735; 84484; 85027; 99284; A9270-GY

== ENCOUNTER 2019-01-10 10:45 | Emergency (ER) | payer MEDICARE ==
[2019-01-10 10:50] VITALS: BP 145/89
--- NOTE | 2019-01-10 11:09 | EDM.PDOCBH ---
ED HPI GENERAL MEDICAL PROBLEM - General Chief Complaint: Behavioral/Psych Stated Complaint: MEDICAL [facility]IA [facility] Time Seen by Provider: 01/10/19 10:55 Source of Information: Reports: EMS, Family History Limitations: Reports: Altered Mental Status (Significant dementia) - History of Present Illness INITIAL COMMENTS - FREE TEXT/NARRATIVE: 83-year-old male with Alzheimer's dementia has been progressively getting harder to handle at home. This morning he was insisting on driving, milking cows , and even threatened to shoot his because she wouldn't get the car keys. She wasn't actually worried about him shooting her, but she is just unable to take care of him anymore because of his volatility. He was in the emergency room last night and 2 other times in the last week, this will be his fourth visit in the last 8 days. She would like him placed to get help. He has no physical complaints, the patient himself just wants to go home. Onset: Unknown/Unsure Associated Symptoms: Reports: Confusion. Denies: Chest Pain, Cough, Headaches, Malaise, Nausea/Vomiting, Shortness of Breath, Weakness - Related Data Allergies Allergy/AdvReac Type Severity Reaction Status Date / Time cimetidine [From Tagamet] Allergy Severe Airway Verified 01/10/19 10:56 Tightness cimetidine HCl [From Tagamet] Allergy Severe Airway Verified 01/10/19 10:56 Tightness naproxen [From Aleve] Allergy Nausea Verified 01/10/19 10:56 Home Meds: Home Meds Aspirin [Gabriella Chewable Aspirin] 81 mg PO DAILY 01/07/14 [History] Folic Acid 400 mcg PO DAILY 01/07/14 [History] Omeprazole 40 mg PO DAILY 02/22/14 [History] Donepezil HCl 10 mg PO DAILY 11/21/17 [History] Levothyroxine 37.5 mcg PO DAILY 11/21/17 [History] Methotrexate Sodium [Methotrexate] 12.5 mg PO WEEKLY 11/21/17 [History] predniSONE [Prednisone] 20 mg PO DAILY 11/21/17 [History] Candesartan Cilexetil [Atacand] 8 mg PO DAILY 12/13/18 [History] Ibuprofen [Advil] 800 mg PO BEDTIME 12/13/18 [History] Past Medical History HEENT History: Reports: Hard of Hearing Cardiovascular History: Reports: High Cholesterol, Hypertension Respiratory History: Reports: COPD Gastrointestinal History: Reports: Gastritis, GERD Genitourinary History: Reports: Prostate Disorder Musculoskeletal History: Reports: RA Other Neuro History: hypoxic ASCHEMIC ENCEPHALOPATHY. post herpatic neuralgia Psychiatric History: Reports: Dementia Endocrine/Metabolic History: Reports: Hypothyroidism Hematologic History: Reports: Anemia Oncologic (Cancer) History: Reports: Prostate Other Dermatologic History: shingles - Infectious Disease History Infectious Disease History: Reports: Chicken Pox, Measles, Mumps Social & Family History - Family History Family Medical History: Noncontributory - Tobacco Use Tobacco Use Comment: current smoker - Caffeine Use Caffeine Use: Reports: Coffee - Recreational Drug Use Recreational Drug Use: No - Living Situation & Occupation Living situation: Reports: with Significant Other Occupation: Retired (lives in [place], [place]. with [employer], retired.) ED ROS GENERAL - Review of Systems Review Of Systems: See Below Constitutional: Denies: Fever, Chills HEENT: Reports: No Symptoms Respiratory: Denies: Shortness of Breath Cardiovascular: Denies: Chest Pain GI/Abdominal: Denies: Abdominal Pain, Nausea, Vomiting Skin: Reports: No Symptoms Neurological: Reports: Confusion. Denies: Headache ED EXAM, BEHAVIORAL HEALTH - Physical Exam Exam: See Below Exam Limited By: No Limitations General Appearance: Alert, No Apparent Distress Eye Exam: Bilateral Eye: EOMI Respiratory/Chest: No Respiratory Distress, Lungs Clear Cardiovascular: Regular Rate, Rhythm GI/Abdominal: Non-Tender Extremities: Normal Inspection Neurological: Alert, Disoriented to Time Psychiatric: Alert, Restless COURSE, BEHAVIORAL HEALTH COMP - Course Vital Signs: Last Vital Signs Temp 97.9 F 01/10/19 10:52 Pulse 84 01/10/19 10:52 Resp 16 01/10/19 10:52 BP 145/89 H 01/10/19 10:52 Pulse Ox 94 L 01/10/19 10:52 Orders, Labs, Meds: Laboratory Tests 01/10/19 Range/Units 11:34 Sodium 144 (140-148) mmol/L Potassium 3.8 (3.6-5.2) mmol/L Chloride 107 (100-108) mmol/L Carbon Dioxide 24 (21-32) mmol/L Anion Gap 12.7 (5.0-14.0) mmol/L BUN 15 (7-18) mg/dL Creatinine 1.4 H (0.8-1.3) mg/dL Est Cr Clr Drug Dosing 36.26 mL/min Estimated GFR (MDRD) 48 L (>60) Glucose 131 H (74-106) mg/dL Calcium 9.2 (8.5-10.1) mg/dL TSH, Ultra Sensitive 4.388 H (0.358-3.740) uIU/mL Medications Discontinued Medications Generic Name Dose Route Start Last Admin Trade Name Zohra PRN Reason Stop Dose Admin Haloperidol Lactate 10 mg 01/10/19 11:22 01/10/19 11:55 Haldol IM 01/10/19 11:23 10 mg ONETIME ONE Administration Re-Assessment/Re-Exam: Reviewed labs over the past week only significance is a mild hypokalemia and his TSH was elevated at 11.3 a week ago. TSH of be rechecked as well as BMP, but our main issue is getting him placed for help. Potassium is now normal, TSH near normal. After extensive search for placement with the help of discharge planning, we set up a home evaluation for tomorrow. Patient was given 10 mg of IM Haldol shortly after coming in and it calmed him down very well. He was given 5 mg doses #20 to take home to take twice daily until placement can be found. Departure - Departure Time of Disposition: 13:45 Disposition: Home, Self-Care 01 Condition: Fair Clinical Impression: Alzheimer's dementia with behavioral disturbance Qualifiers: Alzheimer's disease onset: late-onset Qualified Code(s): G30.1 - Alzheimer's disease with late onset - Discharge Information Instructions: Alzheimer Disease Caregiver Guide Referrals: PCP,None [Primary Care Provider] - Forms: ED Department Discharge Care Plan Goals: Continue current medications, add Haldol 5 mg twice daily to help with mood control, and recheck tomorrow as scheduled.
[2019-01-10] MEDS: Haloperidol Lactate 5 MG/ML SDV IM ONE (11:55)
== END 2019-01-10 14:01 | disposition home or self-care (01) ==
LOC: JP.ED 10:45
DX: G30.1 Alzheimer's disease with late onset (principal); F02.81 Dementia in other diseases classified elsewhere, unspecified severity, with behavioral disturbance; I10 Essential (primary) hypertension; E78.00 Pure hypercholesterolemia, unspecified; J44.9 Chronic obstructive pulmonary disease, unspecified; E03.9 Hypothyroidism, unspecified; F17.200 Nicotine dependence, unspecified, uncomplicated; K21.9 Gastro-esophageal reflux disease without esophagitis; Z79.82 Long term (current) use of aspirin; Z79.899 Other long term (current) drug therapy; Z88.8 Allergy status to other drugs, medicaments and biological substances
CPT/HCPCS: 36415; 80048; 84443; 96372; 99284; J1630

== ENCOUNTER 2019-01-14 14:13 | Inpatient (IN) | payer MEDICARE ==
[2019-01-14] MEDS ORDERED: Sodium Chloride 0.9% 1,000 ML IV ONE (14:53)
[2019-01-14] MEDS ORDERED: Sodium Chloride 0.9% 10 ML Syringe FLUSH PRN ×2 (14:53→19:11)
[2019-01-14] MEDS ORDERED: Hydrocortisone Sodium Succinate 100 MG/2 ML SDV IVPUSH ONE (14:55)
[2019-01-14] MEDS ORDERED: Lidocaine 2% Jelly 10 ML Urojet MUCMEM ONE (16:04)
--- NOTE | 2019-01-14 16:22 | CRLCR ---
Weakness. Comparison chest x-ray 01/02/2019. FINDINGS: Stable cardiac mediastinal silhouette. Reticular opacities in the right lower lobe unchanged probably reflects areas of fibrosis. No acute airspace or interstitial process. No effusion. IMPRESSION: 1. No acute pulmonary process. Dictated by Heather Batista MD @ Jan 14 2019 4:18PM Signed by Dr. Heather Batista @ Jan 14 2019 4:20PM
--- NOTE | 2019-01-14 16:58 | EDM.PDOC ---
ED HPI GENERAL MEDICAL PROBLEM - General Chief Complaint: Cardiovascular Problem Stated Complaint: BLOOD PRESSURE Time Seen by Provider: 01/14/19 14:25 Source of Information: Reports: Family History Limitations: Reports: Physical Impairment - History of Present Illness INITIAL COMMENTS - FREE TEXT/NARRATIVE: This gentleman has dementia and so all the history is given by his . First she said at home his blood pressure was 195/117 and that was the main reason for coming to the ER. She said he's been very tired and just sort of sleeps all the time. Today he was very shaky and weak and could barely get up without any assistance. Usually he can walk alone without any problems. There's been no nausea no vomiting or diarrhea. She denies fever. There's been no cough. Hasn't complained of any shortness of breath or chest pain. There've been no history of urinary symptoms. She says his diet has been very poor for the last couple of days so she thinks maybe he could be dehydrated. - Related Data Allergies Allergy/AdvReac Type Severity Reaction Status Date / Time cimetidine [From Tagamet] Allergy Severe Airway Verified 01/14/19 14:21 Tightness cimetidine HCl [From Tagamet] Allergy Severe Airway Verified 01/14/19 14:21 Tightness naproxen [From Aleve] Allergy Nausea Verified 01/14/19 14:21 Home Meds: Home Meds Aspirin [Gabriella Chewable Aspirin] 81 mg PO DAILY 01/07/14 [History] Omeprazole 40 mg PO DAILY 02/22/14 [History] Donepezil HCl 10 mg PO DAILY 11/21/17 [History] Levothyroxine 50 mcg PO DAILY 11/21/17 [History] Methotrexate Sodium [Methotrexate] 12.5 mg PO WEEKLY 11/21/17 [History] predniSONE [Prednisone] 20 mg PO DAILY 11/21/17 [History] Candesartan Cilexetil [Atacand] 8 mg PO DAILY 12/13/18 [History] Ibuprofen [Advil] 800 mg PO BEDTIME PRN 12/13/18 [History] Folic Acid 1 mg PO BEDTIME 01/14/19 [History] Haloperidol [Haldol] 2.5 mg PO BEDTIME 01/14/19 [History] Potassium Chloride 20 meq PO BID 01/14/19 [History] Past Medical History HEENT History: Reports: Hard of Hearing Cardiovascular History: Reports: High Cholesterol, Hypertension Respiratory History: Reports: COPD Gastrointestinal History: Reports: Gastritis, GERD Genitourinary History: Reports: Prostate Disorder Musculoskeletal History: Reports: RA Other Neuro History: hypoxic ASCHEMIC ENCEPHALOPATHY. post herpatic neuralgia Psychiatric History: Reports: Dementia Endocrine/Metabolic History: Reports: Hypothyroidism Hematologic History: Reports: Anemia Oncologic (Cancer) History: Reports: Prostate Other Dermatologic History: shingles - Infectious Disease History Infectious Disease History: Reports: Chicken Pox, Measles, Mumps - Past Surgical History Head Surgeries/Procedures: Reports: None HEENT Surgical History: Reports: None Cardiovascular Surgical History: Reports: None Respiratory Surgical History: Reports: None GI Surgical History: Reports: None Male Surgical History: Reports: None Endocrine Surgical History: Reports: None Neurological Surgical History: Reports: None Oncologic Surgical History: Reports: None Social & Family History - Family History Family Medical History: Noncontributory - Tobacco Use Smoking Status *Q: Former Smoker Years of Tobacco use: 50 Packs/Tins Daily: 1 Used Tobacco, but Quit: Yes Month/Year Tobacco Last Used: 1984 - Caffeine Use Caffeine Use: Reports: None - Recreational Drug Use Recreational Drug Use: No - Living Situation & Occupation Living situation: Reports: with Significant Other Occupation: Retired (lives in [place], [place]. with [employer], retired.) ED ROS GENERAL - Review of Systems Review Of Systems: Unable To Obtain (All history was given by his . a general review of systems is included in the history of present illness.) ED EXAM, GENERAL - Physical Exam Exam: See Below Exam Limited By: No Limitations General Appearance: Other (A tejeda faced gentleman who initially is sleeping but awakens to voice.) Eye Exam: Bilateral Eye: Normal Inspection Ears: Normal External Exam Nose: Normal Inspection Throat/Mouth: Normal Oropharynx (Tongue seems dry) Head: Atraumatic Neck: Supple Respiratory/Chest: Lungs Clear Cardiovascular: Regular Rate, Rhythm GI/Abdominal: Soft, Non-Tender Extremities: Normal Inspection Neurological: Alert (Once he awakened he seems to be pretty alert), CN II-XII Intact, No Motor/Sensory Deficits, Slow to Respond (He appears to be pretty much confused and is difficult to get any kind of history out of him.). No: Oriented Skin Exam: Warm, Dry, Other (Poor skin turgor) Course - Vital Signs Last Recorded V/S: Last Vital Signs Temp 36.5 C 01/14/19 14:18 Pulse 74 01/14/19 16:27 Resp 18 01/14/19 14:18 BP 183/102 H 01/14/19 16:27 Pulse Ox 96 01/14/19 14:18 - Orders/Labs/Meds Orders: Active Orders 24 hr Category Date Time Status Bladder Scan [RC] ASDIRECTED Care 01/14/19 14:56 Active Sodium Chloride 0.9% [Saline Flush] Med 01/14/19 14:53 Active 10 ml FLUSH ASDIRECTED PRN Saline Lock Insert [OM.PC] Urgent Oth 01/14/19 14:53 Ordered Medication Orders Sodium Chloride (Saline Flush) 10 ml FLUSH ASDIRECTED PRN PRN Reason: Keep Vein Open Last Admin: 01/14/19 15:13 Dose: 10 ml Labs: Laboratory Tests 01/14/19 01/14/19 01/14/19 Range/Units 15:09 15:09 15:09 WBC 9.3 (4.5-11.0) K/uL RBC 3.88 L (4.30-5.90) M/uL Hgb 12.9 (12.0-15.0) g/dL Hct 39.0 L (40.0-54.0) % MCV 101 H (80-98) fL MCH 33 H (27-31) pg MCHC 33 (32-36) % Plt Count 279 (150-400) K/uL Neut % (Auto) 79 H (36-66) % Lymph % (Auto) 19 L (24-44) % Knox % (Auto) 2 (2-6) % Eos % (Auto) 0 L (2-4) % Baso % (Auto) 0 (0-1) % Sodium 139 L (140-148) mmol/L Potassium 4.3 (3.6-5.2) mmol/L Chloride 103 (100-108) mmol/L Carbon Dioxide 25 (21-32) mmol/L Anion Gap 15.3 H (5.0-14.0) mmol/L BUN 13 (7-18) mg/dL Creatinine 1.2 (0.8-1.3) mg/dL Est Cr Clr Drug Dosing 42.09 mL/min Estimated GFR (MDRD) 58 L (>60) Glucose 136 H (74-106) mg/dL Lactic Acid 1.9 (0.4-2.0) mmol/L Calcium 9.4 (8.5-10.1) mg/dL Total Bilirubin 1.1 H D (0.2-1.0) mg/dL AST 26 (15-37) U/L ALT 32 (12-78) U/L Alkaline Phosphatase 72 (46-116) U/L Total Protein 6.9 (6.4-8.2) g/dL Albumin 3.2 L (3.4-5.0) g/dL Globulin 3.7 H (2.3-3.5) g/dL Albumin/Globulin Ratio 0.9 L (1.2-2.2) Urine Color Urine Appearance Urine pH (4.5-8.0) Ur Specific [place] (1.008-1.030) Urine Protein (NEGATIVE) mg/dL Urine Glucose (UA) (NEGATIVE) mg/dL Urine Ketones (NEGATIVE) mg/dL Urine Occult Blood (NEGATIVE) Urine Nitrite (NEGAITVE) Urine Bilirubin (NEGATIVE) Urine Urobilinogen (NORMAL) mg/dL Ur Leukocyte Esterase (NEGATIVE) Urine RBC (0-5) Urine WBC (0-5) Ur Epithelial Cells Amorphous Sediment Urine Bacteria Urine Mucus 01/14/19 Range/Units 16:27 WBC (4.5-11.0) K/uL RBC (4.30-5.90) M/uL Hgb (12.0-15.0) g/dL Hct (40.0-54.0) % MCV (80-98) fL MCH (27-31) pg MCHC (32-36) % Plt Count (150-400) K/uL Neut % (Auto) (36-66) % Lymph % (Auto) (24-44) % Knox % (Auto) (2-6) % Eos % (Auto) (2-4) % Baso % (Auto) (0-1) % Sodium (140-148) mmol/L Potassium (3.6-5.2) mmol/L Chloride (100-108) mmol/L Carbon Dioxide (21-32) mmol/L Anion Gap (5.0-14.0) mmol/L BUN (7-18) mg/dL Creatinine (0.8-1.3) mg/dL Est Cr Clr Drug Dosing mL/min Estimated GFR (MDRD) (>60) Glucose (74-106) mg/dL Lactic Acid (0.4-2.0) mmol/L Calcium (8.5-10.1) mg/dL Total Bilirubin (0.2-1.0) mg/dL AST (15-37) U/L ALT (12-78) U/L Alkaline Phosphatase (46-116) U/L Total Protein (6.4-8.2) g/dL Albumin (3.4-5.0) g/dL Globulin (2.3-3.5) g/dL Albumin/Globulin Ratio (1.2-2.2) Urine Color Yellow Urine Appearance Slightly cloudy Urine pH 7.0 (4.5-8.0) Ur Specific [place] 1.015 (1.008-1.030) Urine Protein Negative (NEGATIVE) mg/dL Urine Glucose (UA) Normal (NEGATIVE) mg/dL Urine Ketones 50 H (NEGATIVE) mg/dL Urine Occult Blood Negative (NEGATIVE) Urine Nitrite Negative (NEGAITVE) Urine Bilirubin Negative (NEGATIVE) Urine Urobilinogen Normal (NORMAL) mg/dL Ur Leukocyte Esterase Negative (NEGATIVE) Urine RBC Not seen (0-5) Urine WBC 0-5 (0-5) Ur Epithelial Cells Not seen Amorphous Sediment Few Urine Bacteria Not seen Urine Mucus Not seen Meds: Medications Generic Name Dose Route Start Last Admin Trade Name Freq PRN Reason Stop Dose Admin Sodium Chloride 10 ml 01/14/19 14:53 01/14/19 15:13 Saline Flush FLUSH 10 ml ASDIRECTED PRN Administration Keep Vein Open Discontinued Medications Generic Name Dose Route Start Last Admin Trade Name Freq PRN Reason Stop Dose Admin Hydrocortisone Sodium Succinate 100 mg 01/14/19 14:55 01/14/19 15:13 Solu-Cortef IVPUSH 01/14/19 14:56 100 mg ONETIME ONE Administration Sodium Chloride 1,000 mls @ 500 mls/hr 01/14/19 14:53 01/14/19 15:12 Normal Saline IV 01/14/19 16:52 500 mls/hr .BOLUS ONE Administration Lidocaine HCl 10 ml 01/14/19 16:04 01/14/19 16:27 Xylocaine 2% Jelly MUCMEM 01/14/19 16:05 10 ml ONETIME ONE Administration - Radiology Interpretation Free Text/Narrative:: Chest x-ray showed no acute changes - Re-Assessments/Exams Free Text/Narrative Re-Assessment/Exam: 01/14/19 16:56 An IV was established and he was given 1 L IV normal saline over 2 hours. This seems to have made little difference. I spoke with Dr. Warner and and he'll be to the emergency department shortly to admit him. Departure - Departure Time of Disposition: 16:57 Disposition: Admitted As Inpatient 66 Condition: Fair Clinical Impression: Weakness, Dehydration Referrals: Maximiliano Narayanan MD [Primary Care Provider] - - My Orders Last 24 Hours: My Active Orders 01/14/19 14:53 Sodium Chloride 0.9% [Saline Flush] 10 ml FLUSH ASDIRECTED PRN Saline Lock Insert [OM.PC] Urgent 01/14/19 14:56 Bladder Scan [RC] ASDIRECTED - Assessment/Plan Last 24 Hours: My Active Orders 01/14/19 14:53 Sodium Chloride 0.9% [Saline Flush] 10 ml FLUSH ASDIRECTED PRN Saline Lock Insert [OM.PC] Urgent 01/14/19 14:56 Bladder Scan [RC] ASDIRECTED
--- NOTE | 2019-01-14 18:25 | PCM.HP ---
H&P History of Present Illness - General Date of Service: 01/14/19 Admit Problem/Dx: Admission Diagnosis/Problem Admission Diagnosis/Problem Dehydration Source of Information: Family, Provider, RN Notes Reviewed History Limitations: Reports: Altered Mental Status (Dementia) - History of Present Illness Initial Comments - Free Text/Narative: Mr. Knox is an 83-year-old gentleman who was admitted through the emergency department with weakness and dehydration. Underlying history of dementia with recent deterioration of cognitive function and episodes of agitation. His reports that she has noted more significant duration over the last year, worse over the past few weeks. He remains verbal, but unable to have a meaningful conversation. He has developed occasional episodes of stool incontinence. Is able to ambulate semi-independently and feeding himself. She feels that she is no longer able to care for him at home. Cognitive function definitely worse over the past few weeks and that he is been more confused with occasional episodes of agitation. Oral intake has gradually diminished and he has progressively lost weight over the past few months. The past week oral intake of liquids as well as solids has been very poor and he is become progressively more weak to the point where he was unable to ambulate today. On evaluation in the emergency department his white blood cell count is normal and there is no obvious source of infection identified. Vital signs have been stable and other labs are unremarkable. On physical exam he does appear to be dehydrated with dry oral mucosal membranes and tenting of the skin. - Related Data Allergies/Adverse Reactions: Allergies Allergy/AdvReac Type Severity Reaction Status Date / Time cimetidine [From Tagamet] Allergy Severe Airway Verified 01/14/19 14:21 Tightness cimetidine HCl [From Tagamet] Allergy Severe Airway Verified 01/14/19 14:21 Tightness naproxen [From Aleve] Allergy Nausea Verified 01/14/19 14:21 Home Medications: Home Meds Aspirin [Gabriella Chewable Aspirin] 81 mg PO DAILY 01/07/14 [History] Omeprazole 40 mg PO DAILY 02/22/14 [History] Donepezil HCl 10 mg PO DAILY 11/21/17 [History] Levothyroxine 50 mcg PO DAILY 11/21/17 [History] Methotrexate Sodium [Methotrexate] 12.5 mg PO WEEKLY 11/21/17 [History] predniSONE [Prednisone] 20 mg PO DAILY 11/21/17 [History] Candesartan Cilexetil [Atacand] 8 mg PO DAILY 12/13/18 [History] Ibuprofen [Advil] 800 mg PO BEDTIME PRN 12/13/18 [History] Folic Acid 1 mg PO BEDTIME 01/14/19 [History] Haloperidol [Haldol] 2.5 mg PO BEDTIME 01/14/19 [History] Potassium Chloride 20 meq PO BID 01/14/19 [History] Past Medical History HEENT History: Reports: Hard of Hearing Cardiovascular History: Reports: High Cholesterol, Hypertension Respiratory History: Reports: COPD Gastrointestinal History: Reports: Gastritis, GERD Genitourinary History: Reports: Prostate Disorder Musculoskeletal History: Reports: RA Other Neuro History: hypoxic ASCHEMIC ENCEPHALOPATHY. post herpatic neuralgia Psychiatric History: Reports: Dementia Endocrine/Metabolic History: Reports: Hypothyroidism Hematologic History: Reports: Anemia Oncologic (Cancer) History: Reports: Prostate Other Dermatologic History: shingles - Infectious Disease History Infectious Disease History: Reports: Chicken Pox, Measles, Mumps - Past Surgical History Head Surgeries/Procedures: Reports: None HEENT Surgical History: Reports: None Cardiovascular Surgical History: Reports: None Respiratory Surgical History: Reports: None GI Surgical History: Reports: None Male Surgical History: Reports: None Endocrine Surgical History: Reports: None Neurological Surgical History: Reports: None Oncologic Surgical History: Reports: None Social & Family History - Family History Family Medical History: Noncontributory - Tobacco Use Smoking Status *Q: Former Smoker Years of Tobacco use: 50 Packs/Tins Daily: 1 Used Tobacco, but Quit: Yes Month/Year Tobacco Last Used: 1984 - Caffeine Use Caffeine Use: Reports: None - Recreational Drug Use Recreational Drug Use: No - Living Situation & Occupation Living situation: Reports: with Significant Other Occupation: Retired (lives in [place], [place]. with [employer], retired.) H&P Review of Systems - Review of Systems: Review Of Systems: Unable To Obtain General: Reports: ROS unobtainable (Dementia) Exam - Exam Exam: See Below - Vital Signs Vital Signs: Last Vital Signs Temp 97.7 F 01/14/19 14:18 Pulse 74 01/14/19 16:27 Resp 18 01/14/19 14:18 BP 155/92 H 01/14/19 17:15 Pulse Ox 96 01/14/19 14:18 Weight: 154 lb - Exam Quality Assessment: DVT Prophylaxis General: Lethargic HEENT: Conjunctiva Clear, Normal Nasal Septum, Posterior Pharynx Clear, Pupils Equal. No: Hearing Intact, Mucosa Moist & [place]: Supple, Trachea Midline, +2 Carotid Pulse wo Bruit Lungs: Clear to Auscultation, Normal Respiratory Effort Cardiovascular: Regular Rate, Regular Rhythm, Normal S1, Normal S2. No: Systolic Murmur, Diastolic Murmur GI/Abdominal Exam: Soft, Non-Tender, No Organomegaly, No Distention Back Exam: Normal Inspection, Full Range of Motion Extremities: Non-Tender, No Pedal Edema Skin: Warm, Dry, Intact Neuro Extensive - Mental Status: Disorientation to Person, Disorientation to Place, Disorientation to Time, Memory Loss-Remote Events, Memory Loss-Recent Events. No: Alert - Patient Data Lab Results Last 24 hrs: Laboratory Results - last 24 hr 01/14/19 01/14/19 01/14/19 Range/Units 15:09 15:09 15:09 WBC 9.3 (4.5-11.0) K/uL RBC 3.88 L (4.30-5.90) M/uL Hgb 12.9 (12.0-15.0) g/dL Hct 39.0 L (40.0-54.0) % MCV 101 H (80-98) fL MCH 33 H (27-31) pg MCHC 33 (32-36) % Plt Count 279 (150-400) K/uL Neut % (Auto) 79 H (36-66) % Lymph % (Auto) 19 L (24-44) % [place] % (Auto) 2 (2-6) % Eos % (Auto) 0 L (2-4) % Baso % (Auto) 0 (0-1) % Sodium 139 L (140-148) mmol/L Potassium 4.3 (3.6-5.2) mmol/L Chloride 103 (100-108) mmol/L Carbon Dioxide 25 (21-32) mmol/L Anion Gap 15.3 H (5.0-14.0) mmol/L BUN 13 (7-18) mg/dL Creatinine 1.2 (0.8-1.3) mg/dL Est Cr Clr Drug Dosing 42.09 mL/min Estimated GFR (MDRD) 58 L (>60) Glucose 136 H (74-106) mg/dL Lactic Acid 1.9 (0.4-2.0) mmol/L Calcium 9.4 (8.5-10.1) mg/dL Total Bilirubin 1.1 H D (0.2-1.0) mg/dL AST 26 (15-37) U/L ALT 32 (12-78) U/L Alkaline Phosphatase 72 (46-116) U/L Total Protein 6.9 (6.4-8.2) g/dL Albumin 3.2 L (3.4-5.0) g/dL Globulin 3.7 H (2.3-3.5) g/dL Albumin/Globulin Ratio 0.9 L (1.2-2.2) Urine Color Urine Appearance Urine pH (4.5-8.0) Ur Specific [place] (1.008-1.030) Urine Protein (NEGATIVE) mg/dL Urine Glucose (UA) (NEGATIVE) mg/dL Urine Ketones (NEGATIVE) mg/dL Urine Occult Blood (NEGATIVE) Urine Nitrite (NEGAITVE) Urine Bilirubin (NEGATIVE) Urine Urobilinogen (NORMAL) mg/dL Ur Leukocyte Esterase (NEGATIVE) Urine RBC (0-5) Urine WBC (0-5) Ur Epithelial Cells Amorphous Sediment Urine Bacteria Urine Mucus 01/14/19 Range/Units 16:27 WBC (4.5-11.0) K/uL RBC (4.30-5.90) M/uL Hgb (12.0-15.0) g/dL Hct (40.0-54.0) % MCV (80-98) fL MCH (27-31) pg MCHC (32-36) % Plt Count (150-400) K/uL Neut % (Auto) (36-66) % Lymph % (Auto) (24-44) % [place] % (Auto) (2-6) % Eos % (Auto) (2-4) % Baso % (Auto) (0-1) % Sodium (140-148) mmol/L Potassium (3.6-5.2) mmol/L Chloride (100-108) mmol/L Carbon Dioxide (21-32) mmol/L Anion Gap (5.0-14.0) mmol/L BUN (7-18) mg/dL Creatinine (0.8-1.3) mg/dL Est Cr Clr Drug Dosing mL/min Estimated GFR (MDRD) (>60) Glucose (74-106) mg/dL Lactic Acid (0.4-2.0) mmol/L Calcium (8.5-10.1) mg/dL Total Bilirubin (0.2-1.0) mg/dL AST (15-37) U/L ALT (12-78) U/L Alkaline Phosphatase (46-116) U/L Total Protein (6.4-8.2) g/dL Albumin (3.4-5.0) g/dL Globulin (2.3-3.5) g/dL Albumin/Globulin Ratio (1.2-2.2) Urine Color Yellow Urine Appearance Slightly cloudy Urine pH 7.0 (4.5-8.0) Ur Specific [place] 1.015 (1.008-1.030) Urine Protein Negative (NEGATIVE) mg/dL Urine Glucose (UA) Normal (NEGATIVE) mg/dL Urine Ketones 50 H (NEGATIVE) mg/dL Urine Occult Blood Negative (NEGATIVE) Urine Nitrite Negative (NEGAITVE) Urine Bilirubin Negative (NEGATIVE) Urine Urobilinogen Normal (NORMAL) mg/dL Ur Leukocyte Esterase Negative (NEGATIVE) Urine RBC Not seen (0-5) Urine WBC 0-5 (0-5) Ur Epithelial Cells Not seen Amorphous Sediment Few Urine Bacteria Not seen Urine Mucus Not seen Result Diagrams: 01/14/19 15:09 01/14/19 15:09 *Q Meaningful Use (ADM) - VTE Risk Assess *Q Each Risk Factor Represents 1 Point: None Total Score 1 Point Risk Factors: 0 Each Risk Factor Represents 2 Points: None Total Score 2 Point Risk Factors: 0 Each Risk Factor Represents 3 Points: Age 75 Years or Greater Total Score 3 Point Risk Factors: 3 Each Risk Factor Represents 5 Points: None Total Score 5 Point Risk Factors: 0 Venous Thromboembolism Risk Factor Score *Q: 3 Problem List Initiated/Reviewed/Updated: Yes Orders Last 24hrs: Active Orders 24 hr Category Date Time Status Patient Status Manage Transfer [TRANSFER] Routine ADT 01/14/19 18:08 Ordered Bladder Scan [RC] ASDIRECTED Care 01/14/19 14:56 Active Sodium Chloride 0.9% [Saline Flush] Med 01/14/19 14:53 Active 10 ml FLUSH ASDIRECTED PRN Saline Lock Insert [OM.PC] Urgent Oth 01/14/19 14:53 Ordered Resuscitation Status Routine Resus Stat 01/14/19 18:12 Ordered Medication Orders Sodium Chloride (Saline Flush) 10 ml FLUSH ASDIRECTED PRN PRN Reason: Keep Vein Open Last Admin: 01/14/19 15:13 Dose: 10 ml Assessment/Plan Comment:: ASSESSMENT AND PLAN WEAKNESS WITH DEHYDRATION-recent history of cognitive decline with poor oral intake resulting in dehydration and progressive weakness. No evidence of underlying infection or significant metabolic abnormality identified on evaluation. -IV fluids for hydration -Physical therapy consult PROGRESSIVE DEMENTIA WITH EPISODES OF AGITATION-decline over the past year, significantly worse over the past few weeks. Poor oral intake and progressive weight loss. Occasional episodes of agitation. 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 At the time of this admission I do not reasonably expected evaluation and management of this problem will require more than a 96 hour hospital stay. DISPOSITION-[facility] PRIMARY CARE PROVIDER-Dr. Perez
[2019-01-14] MEDS ORDERED: Polyethylene Glycol 3350 Powder 17 GM Packet PO PRN (19:11)
[2019-01-14] MEDS ORDERED: Ondansetron 4 MG/2 ML SDV IV PRN (19:11)
[2019-01-14] MEDS: Lactated Ringers 1,000 ML IV SCH (19:41)
[2019-01-14] MEDS ORDERED: Haloperidol 5 MG Tab PO SCH (21:00)
[2019-01-14] MEDS: Melatonin 3 MG Tab PO SCH (21:34)
[2019-01-14] MEDS: Potassium Chloride 20 MEQ Tab.ER PO SCH (21:35)
[2019-01-14] MEDS: Enoxaparin 40 MG/0.4 ML Syringe SUBCUT SCH (21:35)
[2019-01-14] MEDS: Folic Acid 1 MG Tab PO SCH (21:35)
[2019-01-14] MEDS: Haloperidol Lactate 5 MG/ML SDV IVPUSH PRN (22:07)
[2019-01-15] MEDS: Haloperidol Lactate 5 MG/ML SDV IVPUSH PRN ×2 (03:13→05:36)
[2019-01-15] MEDS: Lactated Ringers 1,000 ML IV SCH ×3 (03:19→23:29)
[2019-01-15] MEDS: Acetaminophen 325 MG Tab PO PRN ×2 (04:05→23:27)
[2019-01-15] MEDS ORDERED: Divalproex Sodium Delayed-Release 250 MG Tab.CR PO SCH (08:00)
[2019-01-15] MEDS: Levothyroxine 50 MCG Tab PO SCH (08:07)
[2019-01-15] MEDS: Losartan 25 MG Tab PO SCH (08:07)
[2019-01-15] MEDS: Donepezil 10 MG Tab PO SCH (08:07)
[2019-01-15] MEDS: Aspirin 81 MG Tab.Chew PO SCH (08:07)
[2019-01-15] MEDS: Pantoprazole 40 MG Tab.CR PO SCH (08:08)
[2019-01-15] MEDS: predniSONE 1 MG Tab PO SCH (08:08)
[2019-01-15] MEDS: Potassium Chloride 20 MEQ Tab.ER PO SCH ×2 (08:08→20:03)
[2019-01-15] MEDS ORDERED: Pantoprazole 40 MG Tab.CR PO SCH (09:00)
[2019-01-15] MEDS ORDERED: Levothyroxine 50 MCG Tab PO SCH (09:00)
[2019-01-15] MEDS ORDERED: Haloperidol 1 MG Tab PO PRN (11:46)
--- NOTE | 2019-01-15 11:47 | PCM.PN ---
- General Info Date of Service: 01/15/19 Subjective Update: No acute events overnight. Patient did not sleep well and was calling out for his significant other. He is very sleepy this morning and does not participate in the conversation. He will open his eyes but does not respond to any questions. His significant other thinks that he was more alert this morning before his morning medications and is worried that the somnolence may be a side effect of his new mood stabilizer. - Review of Systems General: Denies: Fever - Patient Data Vitals - Most Recent: Last Vital Signs Temp 36 C 01/15/19 07:53 Pulse 72 01/15/19 07:53 Resp 18 01/15/19 07:53 BP 146/75 H 01/15/19 08:07 Pulse Ox 97 01/15/19 07:53 Weight - Most Recent: 69.853 kg I&O - Last 24 Hours: Intake & Output 01/14/19 01/15/19 01/15/19 22:59 06:59 14:59 Intake Total 1239 Output Total 50 Balance 1239 -50 Lab Results Last 24 Hours: Laboratory Results - last 24 hr 01/14/19 01/14/19 01/14/19 Range/Units 15:09 15:09 15:09 WBC 9.3 (4.5-11.0) K/uL RBC 3.88 L (4.30-5.90) M/uL Hgb 12.9 (12.0-15.0) g/dL Hct 39.0 L (40.0-54.0) % MCV 101 H (80-98) fL MCH 33 H (27-31) pg MCHC 33 (32-36) % Plt Count 279 (150-400) K/uL Neut % (Auto) 79 H (36-66) % Lymph % (Auto) 19 L (24-44) % [place] % (Auto) 2 (2-6) % Eos % (Auto) 0 L (2-4) % Baso % (Auto) 0 (0-1) % Sodium 139 L (140-148) mmol/L Potassium 4.3 (3.6-5.2) mmol/L Chloride 103 (100-108) mmol/L Carbon Dioxide 25 (21-32) mmol/L Anion Gap 15.3 H (5.0-14.0) mmol/L BUN 13 (7-18) mg/dL Creatinine 1.2 (0.8-1.3) mg/dL Est Cr Clr Drug Dosing 42.09 mL/min Estimated GFR (MDRD) 58 L (>60) Glucose 136 H (74-106) mg/dL Lactic Acid 1.9 (0.4-2.0) mmol/L Calcium 9.4 (8.5-10.1) mg/dL Total Bilirubin 1.1 H D (0.2-1.0) mg/dL AST 26 (15-37) U/L ALT 32 (12-78) U/L Alkaline Phosphatase 72 (46-116) U/L Total Protein 6.9 (6.4-8.2) g/dL Albumin 3.2 L (3.4-5.0) g/dL Globulin 3.7 H (2.3-3.5) g/dL Albumin/Globulin Ratio 0.9 L (1.2-2.2) Urine Color Urine Appearance Urine pH (4.5-8.0) Ur Specific [place] (1.008-1.030) Urine Protein (NEGATIVE) mg/dL Urine Glucose (UA) (NEGATIVE) mg/dL Urine Ketones (NEGATIVE) mg/dL Urine Occult Blood (NEGATIVE) Urine Nitrite (NEGAITVE) Urine Bilirubin (NEGATIVE) Urine Urobilinogen (NORMAL) mg/dL Ur Leukocyte Esterase (NEGATIVE) Urine RBC (0-5) Urine WBC (0-5) Ur Epithelial Cells Amorphous Sediment Urine Bacteria Urine Mucus 01/14/19 Range/Units 16:27 WBC (4.5-11.0) K/uL RBC (4.30-5.90) M/uL Hgb (12.0-15.0) g/dL Hct (40.0-54.0) % MCV (80-98) fL MCH (27-31) pg MCHC (32-36) % Plt Count (150-400) K/uL Neut % (Auto) (36-66) % Lymph % (Auto) (24-44) % [place] % (Auto) (2-6) % Eos % (Auto) (2-4) % Baso % (Auto) (0-1) % Sodium (140-148) mmol/L Potassium (3.6-5.2) mmol/L Chloride (100-108) mmol/L Carbon Dioxide (21-32) mmol/L Anion Gap (5.0-14.0) mmol/L BUN (7-18) mg/dL Creatinine (0.8-1.3) mg/dL Est Cr Clr Drug Dosing mL/min Estimated GFR (MDRD) (>60) Glucose (74-106) mg/dL Lactic Acid (0.4-2.0) mmol/L Calcium (8.5-10.1) mg/dL Total Bilirubin (0.2-1.0) mg/dL AST (15-37) U/L ALT (12-78) U/L Alkaline Phosphatase (46-116) U/L Total Protein (6.4-8.2) g/dL Albumin (3.4-5.0) g/dL Globulin (2.3-3.5) g/dL Albumin/Globulin Ratio (1.2-2.2) Urine Color Yellow Urine Appearance Slightly cloudy Urine pH 7.0 (4.5-8.0) Ur Specific [place] 1.015 (1.008-1.030) Urine Protein Negative (NEGATIVE) mg/dL Urine Glucose (UA) Normal (NEGATIVE) mg/dL Urine Ketones 50 H (NEGATIVE) mg/dL Urine Occult Blood Negative (NEGATIVE) Urine Nitrite Negative (NEGAITVE) Urine Bilirubin Negative (NEGATIVE) Urine Urobilinogen Normal (NORMAL) mg/dL Ur Leukocyte Esterase Negative (NEGATIVE) Urine RBC Not seen (0-5) Urine WBC 0-5 (0-5) Ur Epithelial Cells Not seen Amorphous Sediment Few Urine Bacteria Not seen Urine Mucus Not seen Med Orders - Current: Current Medications Acetaminophen (Tylenol) 650 mg PO Q4H PRN PRN Reason: Pain (Mild 1-3)/fever Last Admin: 01/15/19 04:05 Dose: 650 mg Aspirin (Aspirin) 81 mg PO DAILY [facility] Last Admin: 01/15/19 08:07 Dose: 81 mg Donepezil HCl (Aricept) 10 mg PO DAILY [facility] Last Admin: 01/15/19 08:07 Dose: 10 mg Enoxaparin Sodium (Lovenox) 40 mg SUBCUT BEDTIME [facility] Last Admin: 01/14/19 21:35 Dose: 40 mg Folic Acid (Folic Acid) 1 mg PO BEDTIME [facility] Last Admin: 01/14/19 21:35 Dose: 1 mg Haloperidol (Haldol) 1 mg PO Q4H PRN PRN Reason: Agitation Haloperidol Lactate (Haldol) 1 mg IVPUSH Q2H PRN PRN Reason: Agitation Last Admin: 01/15/19 05:36 Dose: 1 mg Lactated Ringer's (Ringers, Lactated) 1,000 mls @ 125 mls/hr IV ASDIRECTED [facility] Last Admin: 01/15/19 03:19 Dose: 125 mls/hr Levothyroxine Sodium (Synthroid) 50 mcg PO ACBREAKFAST [facility] Last Admin: 01/15/19 08:07 Dose: 50 mcg Losartan Potassium (Cozaar) 25 mg PO DAILY [facility] Last Admin: 01/15/19 08:07 Dose: 25 mg Melatonin (Melatonin) 9 mg PO BEDTIME [facility] Last Admin: 01/14/19 21:34 Dose: 9 mg Ondansetron HCl (Zofran) 4 mg IV Q4H PRN PRN Reason: Nausea/Vomiting Pantoprazole Sodium (Protonix) 40 mg PO ACBREAKFAST [facility] Last Admin: 01/15/19 08:08 Dose: 40 mg Polyethylene Glycol (Miralax) 17 gm PO DAILY PRN PRN Reason: Constipation Potassium Chloride (Klor-Con M20) 20 meq PO BID [facility] Last Admin: 01/15/19 08:08 Dose: 20 meq Prednisone (Prednisone) 2 mg PO WITHBREAKFAST [facility] Last Admin: 01/15/19 08:08 Dose: 2 mg Risperidone (Risperidal) 0.5 mg PO BEDTIME [facility] Sodium Chloride (Saline Flush) 10 ml FLUSH ASDIRECTED PRN PRN Reason: Keep Vein Open Discontinued Medications Divalproex Sodium (Divalproex Sodium) 250 mg PO BIDMEALS [facility] Last Admin: 01/15/19 08:08 Dose: 250 mg Haloperidol (Haldol) 2.5 mg PO BEDTIME [facility] Last Admin: 01/14/19 21:35 Dose: 2.5 mg Hydrocortisone Sodium Succinate (Solu-Cortef) 100 mg IVPUSH ONETIME ONE Stop: 01/14/19 14:56 Last Admin: 01/14/19 15:13 Dose: 100 mg Sodium Chloride (Normal Saline) 1,000 mls @ 500 mls/hr IV .BOLUS ONE Stop: 01/14/19 16:52 Last Admin: 01/14/19 15:12 Dose: 500 mls/hr Lidocaine HCl (Xylocaine 2% Jelly) 10 ml MUCMEM ONETIME ONE Stop: 01/14/19 16:05 Last Admin: 01/14/19 16:27 Dose: 10 ml Sodium Chloride (Saline Flush) 10 ml FLUSH ASDIRECTED PRN PRN Reason: Keep Vein Open Last Admin: 01/14/19 15:13 Dose: 10 ml - Exam Quality Assessment: No: Supplemental Oxygen General: No Acute Distress. No: Alert, Oriented HEENT: Pupils Equal Lungs: Clear to Auscultation, Normal Respiratory Effort Cardiovascular: Regular Rate, Regular Rhythm GI/Abdominal Exam: Normal Bowel Sounds, Soft, Non-Tender, No Distention Extremities: No Pedal Edema. No: Increased Warmth Skin: Warm, Dry Psy/Mental Status: No: Alert, Agitated - Problem List Review Problem List Initiated/Reviewed/Updated: Yes - My Orders Last 24 Hours: My Active Orders 01/15/19 11:46 Haloperidol [Haldol] 1 mg PO Q4H PRN 01/15/19 21:00 risperiDONE [RisperiDAL] 0.5 mg PO BEDTIME 01/16/19 05:00 BASIC METABOLIC PANEL,BMP [CHEM] Timed - Plan Plan:: ASSESSMENT AND PLAN WEAKNESS WITH DEHYDRATION - recent history of cognitive decline with poor oral intake resulting in dehydration and progressive weakness. Hydration improved overnight with IV fluids. 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 Poor oral intake and progressive weight loss. Very somnolent this morning, possibly effective Depakote. -Melatonin 9 mg by mouth daily at bedtime -Start risperidone at bedtime -PO/IV Haldol as needed for significant agitation HYPERTENSION - blood pressure has been mildly elevated. We'll continue to monitor a little longer before deciding on adding a new medication with other new medications being started as above. -Continue outpatient medications -Monitor blood pressures during hospitalization and adjust or add medications as needed POLYMYALGIA RHEUMATICA -Currently on prednisone 2 mg daily MAINTENANCE ISSUES -DVT prophylaxis; Lovenox 40 mg subcutaneous daily -GI prophylaxis; continue outpatient PPI therapy -Hicks catheter; not indicated -Nutrition; 2 g sodium diet DISPOSITION - anticipate discharge to care home Driss Oliver M.D.
[2019-01-15] MEDS: Enoxaparin 40 MG/0.4 ML Syringe SUBCUT SCH (20:03)
[2019-01-15] MEDS: Folic Acid 1 MG Tab PO SCH (20:03)
[2019-01-15] MEDS: risperiDONE 0.5 MG Tab PO SCH (20:03)
[2019-01-15] MEDS: Melatonin 3 MG Tab PO SCH (20:03)
[2019-01-16] MEDS: Haloperidol Lactate 5 MG/ML SDV IVPUSH PRN (00:32)
[2019-01-16] MEDS: Pantoprazole 40 MG Tab.CR PO SCH (08:03)
[2019-01-16] MEDS: Levothyroxine 50 MCG Tab PO SCH (08:04)
[2019-01-16] MEDS: Donepezil 10 MG Tab PO SCH (08:05)
[2019-01-16] MEDS: Aspirin 81 MG Tab.Chew PO SCH (08:05)
[2019-01-16] MEDS: predniSONE 1 MG Tab PO SCH (08:05)
[2019-01-16] MEDS: Potassium Chloride 20 MEQ Tab.ER PO SCH ×2 (08:06→20:48)
[2019-01-16] MEDS: Losartan 25 MG Tab PO SCH (08:07)
[2019-01-16] MEDS: Lactated Ringers 1,000 ML IV SCH (08:12)
--- NOTE | 2019-01-16 11:50 | PCM.PN ---
- General Info Date of Service: 01/16/19 Subjective Update: There were no acute events overnight. Patient did have mild agitation and received 1 dose of Haldol. Vitals have all been stable. Patient says he feels fine and does not endorse shortness of breath, abdominal pain or nausea. He has been sleeping pretty much all day. He didn't eat much of anything for breakfast. He is very weak and has difficulty working with physical therapy because of his dementia. Functional Status: Reports: Pain Controlled, Tolerating Diet - Review of Systems General: Reports: Weakness Neurological: Reports: Confusion - Patient Data Vitals - Most Recent: Last Vital Signs Temp 35.5 C 01/16/19 11:41 Pulse 79 01/16/19 11:41 Resp 16 01/16/19 11:41 BP 182/93 H 01/16/19 11:41 Pulse Ox 98 01/16/19 11:41 Weight - Most Recent: 69.853 kg I&O - Last 24 Hours: Intake & Output 01/15/19 01/16/19 01/16/19 22:59 06:59 14:59 Intake Total 1076 1355 120 Output Total 50 200 200 Balance 1026 1155 -80 Lab Results Last 24 Hours: Laboratory Results - last 24 hr 01/16/19 Range/Units 05:10 Sodium 143 (140-148) mmol/L Potassium 3.7 (3.6-5.2) mmol/L Chloride 108 (100-108) mmol/L Carbon Dioxide 28 (21-32) mmol/L Anion Gap 6.8 (5.0-14.0) mmol/L BUN 8 (7-18) mg/dL Creatinine 1.1 (0.8-1.3) mg/dL Est Cr Clr Drug Dosing 46.15 mL/min Estimated GFR (MDRD) > 60 (>60) Glucose 79 (74-106) mg/dL Calcium 8.6 (8.5-10.1) mg/dL Med Orders - Current: Current Medications Acetaminophen (Tylenol) 650 mg PO Q4H PRN PRN Reason: Pain (Mild 1-3)/fever Last Admin: 01/15/19 23:27 Dose: 650 mg Aspirin (Aspirin) 81 mg PO DAILY [facility] Last Admin: 01/16/19 08:05 Dose: 81 mg Donepezil HCl (Aricept) 10 mg PO DAILY [facility] Last Admin: 01/16/19 08:05 Dose: 10 mg Enoxaparin Sodium (Lovenox) 40 mg SUBCUT BEDTIME [facility] Last Admin: 01/15/19 20:03 Dose: 40 mg Folic Acid (Folic Acid) 1 mg PO BEDTIME [facility] Last Admin: 01/15/19 20:03 Dose: 1 mg Haloperidol (Haldol) 1 mg PO Q4H PRN PRN Reason: Agitation Haloperidol Lactate (Haldol) 1 mg IVPUSH Q2H PRN PRN Reason: Agitation Last Admin: 01/16/19 00:32 Dose: 1 mg Levothyroxine Sodium (Synthroid) 50 mcg PO ACBREAKFAST [facility] Last Admin: 01/16/19 08:04 Dose: 50 mcg Losartan Potassium (Cozaar) 25 mg PO DAILY [facility] Last Admin: 01/16/19 08:07 Dose: 25 mg Melatonin (Melatonin) 9 mg PO BEDTIME [facility] Last Admin: 01/15/19 20:03 Dose: 9 mg Ondansetron HCl (Zofran) 4 mg IV Q4H PRN PRN Reason: Nausea/Vomiting Pantoprazole Sodium (Protonix) 40 mg PO ACBREAKFAST [facility] Last Admin: 01/16/19 08:03 Dose: 40 mg Polyethylene Glycol (Miralax) 17 gm PO DAILY PRN PRN Reason: Constipation Potassium Chloride (Klor-Con M20) 20 meq PO BID [facility] Last Admin: 01/16/19 08:06 Dose: 20 meq Prednisone (Prednisone) 2 mg PO WITHBREAKFAST [facility] Last Admin: 01/16/19 08:05 Dose: 2 mg Risperidone (Risperidal) 0.5 mg PO BEDTIME [facility] Last Admin: 01/15/19 20:03 Dose: 0.5 mg Sodium Chloride (Saline Flush) 10 ml FLUSH ASDIRECTED PRN PRN Reason: Keep Vein Open Discontinued Medications Divalproex Sodium (Divalproex Sodium) 250 mg PO BIDMEALS [facility] Last Admin: 01/15/19 08:08 Dose: 250 mg Haloperidol (Haldol) 2.5 mg PO BEDTIME [facility] Last Admin: 01/14/19 21:35 Dose: 2.5 mg Hydrocortisone Sodium Succinate (Solu-Cortef) 100 mg IVPUSH ONETIME ONE Stop: 01/14/19 14:56 Last Admin: 01/14/19 15:13 Dose: 100 mg Sodium Chloride (Normal Saline) 1,000 mls @ 500 mls/hr IV .BOLUS ONE Stop: 01/14/19 16:52 Last Admin: 01/14/19 15:12 Dose: 500 mls/hr Lactated Ringer's (Ringers, Lactated) 1,000 mls @ 125 mls/hr IV ASDIRECTED [facility]NAL[facility] Last Admin: 01/16/19 08:12 Dose: 125 mls/hr Lidocaine HCl (Xylocaine 2% Jelly) 10 ml MUCMEM ONETIME ONE Stop: 01/14/19 16:05 Last Admin: 01/14/19 16:27 Dose: 10 ml Sodium Chloride (Saline Flush) 10 ml FLUSH ASDIRECTED PRN PRN Reason: Keep Vein Open Last Admin: 01/14/19 15:13 Dose: 10 ml - Exam Quality Assessment: No: Supplemental Oxygen General: Alert, Cooperative, No Acute Distress. No: Oriented Lungs: Clear to Auscultation, Normal Respiratory Effort Cardiovascular: Regular Rate, Regular Rhythm GI/Abdominal Exam: Soft, No Distention Extremities: No Pedal Edema Psy/Mental Status: Alert. No: Agitated - Problem List Review Problem List Initiated/Reviewed/Updated: Yes - My Orders Last 24 Hours: My Active Orders 01/15/19 11:46 Haloperidol [Haldol] 1 mg PO Q4H PRN 01/15/19 21:00 risperiDONE [RisperiDAL] 0.5 mg PO BEDTIME 01/16/19 09:59 Convert IV to Saline Lock [OM.PC] Routine - Plan Plan:: ASSESSMENT AND PLAN WEAKNESS WITH DEHYDRATION - recent history of cognitive decline with poor oral intake resulting in dehydration and progressive weakness. He appears well- hydrated at this time. 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 Poor oral intake and progressive weight loss. Agitation seems better. Patient prefers to sleep most of the day with minimal interaction. His significant other is hoping for memory care placement at some point. We did discuss hospice today as well but she's not ready for hospice at this time. -Melatonin 9 mg by mouth daily at bedtime -risperidone at bedtime -PO/IV Haldol as needed for significant agitation HYPERTENSION - blood pressure has been stable with no indication to start an antihypertensive at this point. -Continue outpatient medications -Monitor blood pressures during hospitalization and adjust or add medications as needed POLYMYALGIA RHEUMATICA -Currently on prednisone 2 mg daily MAINTENANCE ISSUES -DVT prophylaxis; Lovenox 40 mg subcutaneous daily -GI prophylaxis; continue outpatient PPI therapy -Hicks catheter; not indicated -Nutrition; 2 g sodium diet DISPOSITION - anticipate discharge to [facility] Driss Oliver M.D.
[2019-01-16] MEDS: risperiDONE 0.5 MG Tab PO SCH (20:48)
[2019-01-16] MEDS: Folic Acid 1 MG Tab PO SCH (20:48)
[2019-01-16] MEDS: Melatonin 3 MG Tab PO SCH (20:48)
[2019-01-16] MEDS: Enoxaparin 40 MG/0.4 ML Syringe SUBCUT SCH (20:48)
[2019-01-17] MEDS: Pantoprazole 40 MG Tab.CR PO SCH (07:24)
[2019-01-17] MEDS: Levothyroxine 50 MCG Tab PO SCH (08:02)
[2019-01-17] MEDS: predniSONE 1 MG Tab PO SCH (08:02)
[2019-01-17] MEDS: Donepezil 10 MG Tab PO SCH (08:05)
[2019-01-17] MEDS: Losartan 25 MG Tab PO SCH (08:05)
[2019-01-17] MEDS: Potassium Chloride 20 MEQ Tab.ER PO SCH (08:06)
[2019-01-17] MEDS: Aspirin 81 MG Tab.Chew PO SCH (08:06)
[2019-01-17 10:48] VITALS: BP 138/75
--- NOTE | 2019-01-17 10:50 | PCM.DCSUM1 ---
Discharge Summary - Hospital Course Brief History: 83-year-old male with history of Alzheimer's dementia with behavioral disturbance, polymyalgia rheumatica and recent significant functional decline who presented with intermittent episodes of agitation as well as poor intake, dehydration and weakness. He was admitted for management of agitation as well as hydration and strengthening. Diagnosis: Stroke: No - Discharge Data Discharge Date: 01/17/19 Discharge Disposition: DC/Tfer to SNF 03 Condition: Stable - Discharge Diagnosis/Problem(s) (1) Alzheimer's dementia with behavioral disturbance SNOMED Code(s): 3315384156184 ICD Code: G30.9 - ALZHEIMER'S DISEASE, UNSPECIFIED; F02.81 - DEMENTIA IN OTH DISEASES CLASSD ELSWHR W BEHAVIORAL DISTURB Status: Chronic Current Visit: No Qualifiers: Alzheimer's disease onset: late-onset Qualified Code(s): G30.1 - Alzheimer' s disease with late onset; F02.81 - Dementia in other diseases classified elsewhere with behavioral disturbance (2) Weakness SNOMED Code(s): 85353167 ICD Code: R53.1 - WEAKNESS Status: Acute Current Visit: Yes (3) Dehydration SNOMED Code(s): 63341429 ICD Code: E86.0 - DEHYDRATION Status: Acute Current Visit: Yes (4) Polymyalgia rheumatica SNOMED Code(s): 30171720 ICD Code: M35.3 - POLYMYALGIA RHEUMATICA Status: Chronic Current Visit: No - Patient Summary/Data Consults: Consultations 01/14/19 19:11 PT Evaluation and Treatment [CONS] Routine Please Evaluate and Treat. PT Reason for Consult: Weakness This query below is only for informational purposes and is not editable. Hospital Course: Francine presented to the emergency room with intermittent episodes of agitation as well as poor intake, dehydration and generalized weakness. Laboratory workup in the emergency room was fairly unremarkable. There is no evidence for infection. With his agitation as well as the weakness and dehydration, the decision was made to admit him to the hospital. Regarding the agitation initially he was started on Depakote as well as melatonin. He received IV fluids. Physical therapy was ordered and he received this the morning after admission. On the morning after admission he is fairly somnolent so the Depakote was discontinued and he was started on risperidone that evening. He has not had much in the way of agitation but has been fairly sleepy. sounds like this is his baseline recently. His dehydration has improved but he has had very poor intake. I suspect that significant dehydration will not be too far down the road unless he improves his oral intake. My big concern is that he is at the end stage this Alzheimer's disease with a large decline in his functional status as well as a desire to sleep all day. He has lost weight. He eats very little. He is very weak and requires the assist of 2 for any transfers. After several discussions with the family we have elected to try subacute rehabilitation stay to see if he can be stronger and potentially safe either at home or in assisted living. He may end up requiring 24-hour assistance , either in the [facility] or a memory care. we did also discuss hospice care since I believe he may be at the end of his disease process. - Patient Instructions Diet: Regular Diet as Tolerated (Geriatric ) Activity: As Tolerated Showering/Bathing: May Shower Notify Provider of: Fever, Increased Pain, Nausea and/or Vomiting Other/Special Instructions: 1. You were in the hospital for management of Alzheimer's disease complicated by behavioral disturbance with agitation. The agitation has improved with the use of risperidone. The patient has displayed evidence of decline with his Alzheimer's disease including weight loss, poor intake and desire to sleep all day. This may be a sign of the end-stage of his disease. 2. Referral to physical and occupational therapy to attempt to provide strengthening exercises setting of significant generalized weakness. 3. Code status - DNR/DNI. 4. Seek medical attention if you develop fever greater than 101 or have severe agitation. - Discharge Plan *PRESCRIPTION DRUG MONITORING PROGRAM REVIEWED*: Not Applicable *COPY OF PRESCRIPTION DRUG MONITORING REPORT IN PATIENT MELISSA: Not Applicable Prescriptions/Med Rec: Acetaminophen [Tylenol] 650 mg PO Q4H PRN #100 tablet PRN Reason: Pain (Mild 1-3)/fever Melatonin 10 mg PO BEDTIME #30 tablet risperiDONE [RisperiDAL] 0.5 mg PO BEDTIME #30 tablet Home Medications: Home Meds Aspirin [Gabriella Chewable Aspirin] 81 mg PO DAILY 01/07/14 [History] Omeprazole 40 mg PO DAILY 02/22/14 [History] Donepezil HCl 10 mg PO DAILY 11/21/17 [History] Levothyroxine 50 mcg PO DAILY 11/21/17 [History] Candesartan Cilexetil [Atacand] 8 mg PO DAILY 12/13/18 [History] Folic Acid 1 mg PO BEDTIME 01/14/19 [History] Potassium Chloride 20 meq PO BID 01/14/19 [History] Acetaminophen [Tylenol] 650 mg PO Q4H PRN #100 tablet 01/17/19 [Rx] Melatonin 10 mg PO BEDTIME #30 tablet 01/17/19 [Rx] Methotrexate Sodium [Methotrexate] 12.5 mg PO WEEKLY #0 01/17/19 [Rx] predniSONE 2 mg PO WITHBREAKFAST tablet 01/17/19 [Rx] risperiDONE [RisperiDAL] 0.5 mg PO BEDTIME #30 tablet 01/17/19 [Rx] Oxygen Therapy Mode: Room Air Patient Handouts: Living With Alzheimer Disease, Risperidone tablets Referrals: Maximiliano Narayanan MD [Primary Care Provider] - (1-2 weeks - f/u hospital stay for dementia with agitation ) - Discharge Summary/Plan Comment DC Time >30 min.: Yes (45 - new [facility] discharge) - Patient Data Vitals - Most Recent: Last Vital Signs Temp 36.3 C 01/17/19 07:18 Pulse 103 H 01/17/19 07:18 Resp 20 01/17/19 07:18 BP 164/85 H 01/17/19 08:05 Pulse Ox 94 L 01/17/19 07:18 Weight - Most Recent: 69.853 kg I&O - Last 24 hours: Intake & Output 01/16/19 01/17/19 01/17/19 22:59 06:59 14:59 Intake Total 400 Output Total 80 Balance 400 -80 Med Orders - Current: Current Medications Acetaminophen (Tylenol) 650 mg PO Q4H PRN PRN Reason: Pain (Mild 1-3)/fever Last Admin: 01/15/19 23:27 Dose: 650 mg Aspirin (Aspirin) 81 mg PO DAILY [facility] Last Admin: 01/17/19 08:06 Dose: 81 mg Donepezil HCl (Aricept) 10 mg PO DAILY [facility] Last Admin: 01/17/19 08:05 Dose: 10 mg Enoxaparin Sodium (Lovenox) 40 mg SUBCUT BEDTIME [facility] Last Admin: 01/16/19 20:48 Dose: 40 mg Folic Acid (Folic Acid) 1 mg PO BEDTIME [facility] Last Admin: 01/16/19 20:48 Dose: 1 mg Haloperidol (Haldol) 1 mg PO Q4H PRN PRN Reason: Agitation Haloperidol Lactate (Haldol) 1 mg IVPUSH Q2H PRN PRN Reason: Agitation Last Admin: 01/16/19 00:32 Dose: 1 mg Levothyroxine Sodium (Synthroid) 50 mcg PO ACBREAKFAST [facility] Last Admin: 01/17/19 08:02 Dose: 50 mcg Losartan Potassium (Cozaar) 25 mg PO DAILY [facility] Last Admin: 01/17/19 08:05 Dose: 25 mg Melatonin (Melatonin) 9 mg PO BEDTIME [facility] Last Admin: 01/16/19 20:48 Dose: 9 mg Ondansetron HCl (Zofran) 4 mg IV Q4H PRN PRN Reason: Nausea/Vomiting Pantoprazole Sodium (Protonix) 40 mg PO ACBREAKFAST [facility] Last Admin: 01/17/19 07:24 Dose: 40 mg Polyethylene Glycol (Miralax) 17 gm PO DAILY PRN PRN Reason: Constipation Potassium Chloride (Klor-Con M20) 20 meq PO BID [facility] Last Admin: 01/17/19 08:06 Dose: 20 meq Prednisone (Prednisone) 2 mg PO WITHBREAKFAST [facility] Last Admin: 01/17/19 08:02 Dose: 2 mg Risperidone (Risperidal) 0.5 mg PO BEDTIME [facility] Last Admin: 01/16/19 20:48 Dose: 0.5 mg Sodium Chloride (Saline Flush) 10 ml FLUSH ASDIRECTED PRN PRN Reason: Keep Vein Open Discontinued Medications Divalproex Sodium (Divalproex Sodium) 250 mg PO BIDMEALS [facility] Last Admin: 01/15/19 08:08 Dose: 250 mg Haloperidol (Haldol) 2.5 mg PO BEDTIME [facility] Last Admin: 01/14/19 21:35 Dose: 2.5 mg Hydrocortisone Sodium Succinate (Solu-Cortef) 100 mg IVPUSH ONETIME ONE Stop: 01/14/19 14:56 Last Admin: 01/14/19 15:13 Dose: 100 mg Sodium Chloride (Normal Saline) 1,000 mls @ 500 mls/hr IV .BOLUS ONE Stop: 01/14/19 16:52 Last Admin: 01/14/19 15:12 Dose: 500 mls/hr Lactated Ringer's (Ringers, Lactated) 1,000 mls @ 125 mls/hr IV ASDIRECTED [facility] Last Admin: 01/16/19 08:12 Dose: 125 mls/hr Lidocaine HCl (Xylocaine 2% Jelly) 10 ml MUCMEM ONETIME ONE Stop: 01/14/19 16:05 Last Admin: 01/14/19 16:27 Dose: 10 ml Sodium Chloride (Saline Flush) 10 ml FLUSH ASDIRECTED PRN PRN Reason: Keep Vein Open Last Admin: 01/14/19 15:13 Dose: 10 ml - Exam Quality Assessment: Denies: Supplemental Oxygen General: Reports: Alert, Cooperative, Lethargic. Denies: Oriented HEENT: Reports: Pupils Equal Lungs: Reports: Clear to Auscultation, Normal Respiratory Effort Cardiovascular: Reports: Regular Rate, Regular Rhythm GI/Abdominal Exam: Soft, No Distention Extremities: No Pedal Edema Psy/Mental Status: Reports: Alert. Denies: Agitated
== END 2019-01-17 12:15 | DRG 57 ==
LOC: JP.ED 14:13 → JP.MS 18:08
PROVIDERS: ADMIT Hospitalist; ATTEND Internal Medicine
DX: G30.9 Alzheimer's disease, unspecified (principal); F02.81 Dementia in other diseases classified elsewhere, unspecified severity, with behavioral disturbance; Z66 Do not resuscitate; I10 Essential (primary) hypertension; R45.1 Restlessness and agitation; M06.9 Rheumatoid arthritis, unspecified; E03.9 Hypothyroidism, unspecified; Z87.891 Personal history of nicotine dependence; M35.3 Polymyalgia rheumatica; J44.9 Chronic obstructive pulmonary disease, unspecified; E86.0 Dehydration; R53.1 Weakness; E78.00 Pure hypercholesterolemia, unspecified; K21.9 Gastro-esophageal reflux disease without esophagitis; Z85.46 Personal history of malignant neoplasm of prostate; H91.90 Unspecified hearing loss, unspecified ear; Z79.82 Long term (current) use of aspirin; Z79.52 Long term (current) use of systemic steroids; Z88.8 Allergy status to other drugs, medicaments and biological substances
CPT/HCPCS: 36415; 51701; 51798; 71045; 80053; 81001; 83605; 85025; 96361; 96374; 99284; 99285; J1720; J7030; 80048; 97110-GP; 97162-GP; A9270-GY; J1630; J1650; J7120